=== PATIENT | male | born 1940 | race Caucasian/White ===

== ENCOUNTER 2017-10-05 22:11 | Emergency (ER) | payer OTHER, MEDICARE ==
[~2017-10-05] VITALS: Ht 180.3 cm; Wt 80.8 kg
[~2017-10-05 22:11] MED LIST: ASPI-321 PO; BIMA0.038 OPL; HYDC25 PO; MECL1TAB42 PO; METO25TA3 PO; METO25TA31 PO
[2017-10-05 22:14] VITALS: TEMP 36.6; Ht 180.3 cm; Wt 80.8 kg
[2017-10-05 22:18] VITALS: O2SAT 98
[2017-10-05] MEDS ORDERED: GI COCKTAIL PO STA (22:24)
[2017-10-05] MEDS ORDERED: ONDANSETRON INJ 2 MG/ML 2 ML VIAL IV STA (22:24)
[2017-10-05] MEDS ORDERED: SODIUM CHLORIDE 0.9% 1000ML 1,000 ML IV STA (22:24)
[2017-10-05] MEDS ORDERED: KETOROLAC TROMETHAMINE 30 MG/ML VIAL IV STA (22:24)
[2017-10-05] MEDS ORDERED: ALUMINUM/MAGNESIUM SUSP 30 ML UDC ONE (22:28)
[2017-10-05] MEDS ORDERED: LIDOCAINE HCL 2% VISC SOLN 20 ML UDC ONE (22:28)
--- NOTE | 2017-10-05 22:31 | EMERGENCY ROOM VISIT NOTE ---
History Report prepared by Yoseph: Vincent Loomis Under the Supervision of: Dr. Ron Torrez M.D. First contact with patient: 22:17 Chief Complaint: FOOD BOLUS Stated Complaint: STEAK LODGED IN THROAT History of Present Illness The patient is a 77 year old white male with a past medical history of HTN who presents to the ED with a cc of constant irritation and a resolved food bolus to the throat beginning 3 hours ago. Pt states he had a few bites of steak that got stuck in his throat. He reports he vomited phlegm up several times and was SOB. The patient notes he was almost to the hospital when he vomited up the chunks of steak. He states after he vomited, he was able to breath and felt better. The patient reports he now is only experiencing weakness and mild irritation now. Positive difficulty swallowing before. Negative radiation to the neck, cancer to the neck, alcohol use, tobacco use. Source of History: patient Onset: three hours ago Position: throat Quality: other (irritation/food bolus) Timing: constant (irritation), resolved (food bolus) Modifying Factors (Relieving): other (vomiting) Associated Symptoms: + SOB (resolved), + vomiting, + weakness Review of Systems See HPI for pertinent positives and negatives. A total of ten systems were reviewed and were otherwise negative. Past Medical & Surgical Medical Problems: (1) HTN (hypertension) (2) Skin problems Family History Diabetes mellitus FH: cancer FH: heart disease Social History Smoking Status: Former Smoker Marital Status: Housing Status: lives with family Occupation Status: retired Current/Historical Medications Scheduled Aspirin (Aspirin Ec), 81 MG PO DAILY Cholecalciferol (Vitamin D3), 5,000 UNIT PO DAILY Hydrochlorothiazide (Hydrochlorothiazide), 1 TAB PO DAILY Metoprolol Tartrate (Lopressor), 25 MG PO BID Travoprost (Travatan Z), 1 DROPS OPB HS Vitamin E (Vitamin E), 400 UNIT PO DAILY Scheduled PRN Pantoprazole (Protonix), 20 MG PO DAILY PRN for Heartburn Allergies Coded Allergies: No Known Allergies (Verified , NONE, 10/05/17) Physical Exam Vital Signs Date Time Temp Pulse Resp B/P (MAP) Pulse Ox O2 Delivery O2 Flow Rate FiO2 10/05/17 23:41 90 18 130/88 93 Room Air 10/05/17 23:00 87 10/05/17 22:47 93 18 151/119 98 Room Air 10/05/17 22:18 98 Room Air 98 10/05/17 22:14 36.6 120 22 147/107 100 Room Air Physical Exam GENERAL: Awake, alert, well-appearing, NAD HENT: Normocephalic, atraumatic. Posterior oropharynx is clear. EYES: Normal conjunctiva. Sclera non-icteric. NECK: Supple. No nuchal rigidity. FROM. Non-stridulous. RESPIRATORY: CTAB, no rhonchi, wheezing, crackles CARDIAC: Tachy and regular, no MRG ABDOMEN: Soft, NTND, BS+ MSK: No chest wall TTP, no LE edema NEURO: GCS 15, CN 2-12 intact, moves all 4s on command SKIN: No rash or jaundice noted. Medical Decision & Procedures ER Provider Diagnostic Interpretation: X-ray: Per my interpretation, radiologist review. CHEST ONE VIEW PORTABLE HISTORY: 77 years-old Male ABDOMINAL PAIN/GI acute generalized abdominal pain COMPARISON: Chest radiograph 03/05/2009 TECHNIQUE: Portable AP view of the chest FINDINGS: Cardiac silhouette is mildly enlarged, unchanged. Atherosclerosis of the aorta. No pneumothorax, pleural effusion, focal airspace consolidation or overt pulmonary edema. Degenerative changes of the shoulders and spine noted. IMPRESSION: Cardiomegaly without acute process. The above report was generated using voice recognition software. It may contain grammatical, syntax or spelling errors. Electronically signed by: Tin Story M.D. 10/05/2017 11:01 PM Dictated Date/Time: 10/05/2017 11:00 PM Laboratory Results 10/05/17 22:40 Red Blood Count 5.74, Mean Corpuscular Volume 81.0, Mean Corpuscular Hemoglobin 29.1, Mean Corpuscular Hemoglobin Concent 35.9, Mean Platelet Volume 8.7, Neutrophils (%) (Auto) 76.1, Lymphocytes (%) (Auto) 16.3, Monocytes (%) (Auto) 6.4, Eosinophils (%) (Auto) 0.7, Basophils (%) (Auto) 0.2, Neutrophils # (Auto) 8.27, Lymphocytes # (Auto) 1.77, Monocytes # (Auto) 0.69, Eosinophils # (Auto) 0.08, Basophils # (Auto) 0.02 10/05/17 22:40 Test 10/05/17 22:40 White Blood Count 10.86 K/uL (4.8-10.8) Red Blood Count 5.74 M/uL (4.7-6.1) Hemoglobin 16.7 g/dL (14.0-18.0) Hematocrit 46.5 % (42-52) Mean Corpuscular Volume 81.0 fL (80-100) Mean Corpuscular Hemoglobin 29.1 pg (25-34) Mean Corpuscular Hemoglobin Concent 35.9 g/dl (32-36) Platelet Count 179 K/uL (130-400) Mean Platelet Volume 8.7 fL (7.4-10.4) Neutrophils (%) (Auto) 76.1 % Lymphocytes (%) (Auto) 16.3 % Monocytes (%) (Auto) 6.4 % Eosinophils (%) (Auto) 0.7 % Basophils (%) (Auto) 0.2 % Neutrophils # (Auto) 8.27 K/uL (1.4-6.5) Lymphocytes # (Auto) 1.77 K/uL (1.2-3.4) Monocytes # (Auto) 0.69 K/uL (0.11-0.59) Eosinophils # (Auto) 0.08 K/uL (0-0.5) Basophils # (Auto) 0.02 K/uL (0-0.2) RDW Standard Deviation 38.9 fL (36.4-46.3) RDW Coefficient of Variation 13.1 % (11.5-14.5) Immature Granulocyte % (Auto) 0.3 % Immature Granulocyte # (Auto) 0.03 K/uL (0.00-0.02) Anion Gap 8.0 mmol/L (3-11) Est Creatinine Clear Calc Drug Dose 41.4 ml/min Estimated GFR () 46.7 Estimated GFR (Non- 40.3 BUN/Creatinine Ratio 17.1 (10-20) Calcium Level 9.5 mg/dl (8.5-10.1) Total Bilirubin 0.8 mg/dl (0.2-1) Direct Bilirubin 0.2 mg/dl (0-0.2) Aspartate Amino Transf (AST/SGOT) 15 U/L (15-37) Alanine Aminotransferase (ALT/SGPT) 17 U/L (12-78) Alkaline Phosphatase 83 U/L (45-117) Total Protein 7.9 gm/dl (6.4-8.2) Albumin 4.4 gm/dl (3.4-5.0) Lipase 171 U/L (73-393) Laboratory results reviewed by me Medications Administered Medications (Trade) Dose Ordered Sig/Romulo Route Start Time Stop Time Status Last Admin Dose Admin Sodium Chloride 1,000 ml @ 999 mls/hr Q1H1M STAT IV 10/05/17 22:24 10/05/17 23:24 DC 10/05/17 22:42 999 MLS/HR Ondansetron HCl (Zofran Inj) 4 mg NOW STAT IV 10/05/17 22:24 10/05/17 22:27 DC 10/05/17 22:42 4 MG Ketorolac Tromethamine (Toradol Inj) 30 mg NOW STAT IV 10/05/17 22:24 10/05/17 22:27 DC 10/05/17 22:42 30 MG Al Hydroxide/Mg Hydroxide (Maalox Susp) 30 ml STK-MED ONCE .ROUTE 10/05/17 22:28 10/05/17 22:29 DC 10/05/17 22:42 30 ML Lidocaine HCl (Viscous Lidocaine 2% Soln) 20 ml STK-MED ONCE .ROUTE 10/05/17 22:28 10/05/17 22:29 DC 10/05/17 22:42 20 ML ED Course 2221: The patient was evaluated in room B04B. A complete history and physical exam was performed. 2328: I reevaluated the patient. He is feeling much better. Discussed results and discharge instructions: he verbalized understanding and agreement. The patient is ready for discharge. Medical Decision Nursing notes reviewed. Ancillary studies and prior records reviewed. The patient is a 77 year old white male with a past medical history of HTN who presents to the ED with a cc of constant irritation and a resolved food bolus to the throat beginning 3 hours ago. Differential diagnosis: Etiologies such as viral syndrome, tonsillitis, streptococcal pharyngitis, mononucleosis, peritonsillar abscess, retropharyngeal abscess, otitis, pneumonia , influenza, food bolus, diverticulum, esophageal web, esophageal stricture, as well as others were entertained. Patient was seen and evaluated the bedside. Patient had been eating some steak and he felt as though it is lodged in his throat. Patient was having some difficulty with swallowing and was trying to cough something up. Thereafter he did have one bout of emesis. Patient does feel weak at this time. Patient thought that maybe he was having some difficulty breathing as well. On exam the patient has no evidence of any foreign body in the posterior pharynx. Patient is not stridulous on exam. Patient has clear breath sounds. Patient did have blood work completed, chest x-ray, and was given IV fluids as well as some medications. His blood work is fairly unremarkable. Patient does have some baseline CKD. This is fairly unchanged from his prior. Patient's chest x-ray did show cardiomegaly without any evidence of consolidation. On reassessment the patient's heart rate had improved. I believe this is likely related to some dehydration as well as anxiety. Patient was able tolerate p.o. at the bedside was able to tolerate rinku mickey without issue. Given that he likely had vomited up his food bolus and the fact that he is not stridulous with a clear extra chest x-ray and great improvement in his symptoms I do not believe that he requires a GI consult or further imaging or evaluation in the hospital. I did discuss with the patient that needs to be sure that he cuts up his food well, take small bites, and chews thoroughly before swallowing. Patient states he has had some issues with swallowing bread in the past. I discussed with the patient that if this becomes persistent he should discuss with his PCP about obtaining a swallow study. Again the patient at the bedside is not stridulous and I do not have a concern for airway compromise at this time. Patient was able tolerate p.o. Patient was deemed suitable for outpatient follow-up and treatment at this time. Patient was given strict follow-up, discharge, and return precautions. All questions were answered. Patient was deemed suitable for outpatient follow-up at this time. Patient agreed with the plan of care and was safely discharged home. Medication Reconcilliation Current Medication List: was personally reviewed by me Blood Pressure Screening Patient's blood pressure: Elevated blood pressure Blood pressure disposition: Referred to PCP Impression Primary Impression: Food impaction of esophagus Additional Impressions: Hypokalemia CKD (chronic kidney disease) stage 3, GFR 30-59 ml/min Scribe Attestation The scribe's documentation has been prepared under my direction and personally reviewed by me in its entirety. I confirm that the note above accurately reflects all work, treatment, procedures, and medical decision making performed by me. Departure Information Dispostion Home / Self-Care Referrals No Doctor, Assigned (PCP) Forms HOME CARE DOCUMENTATION FORM, IMPORTANT VISIT INFORMATION, WORK / SCHOOL INSTRUCTIONS Patient Instructions My [facility] Additional Instructions Please return to the emergency department if you have worsening or recurrent symptoms not amenable to at-home treatment. Please call for a follow-up appointment with her primary care physician. Please take your medications as prescribed. If you have other concerns and/or complaints please feel free to also call your primary care physician's office or return the ED for further evaluation, management, and treatment. You were found to have an elevated blood pressure today (>120 sytolic or >90 diastolic). Per medicare guidelines, you need to follow up with this blood pressure screening with your Primary Care Physician (PCP). For a new PCP call [phone]. Please ensure that when you eat consider softer foods, cut up her food into small pieces, take small bites, and chew your food thoroughly prior to swallowing. If you do have persistent issues with swallowing, please discuss obtaining further evaluation either with a specialist or further studies such as a swallow study as an outpatient. Return if you have any worsening or continued symptoms. Take your medications as prescribed. You have been examined and treated today on an emergency basis only. This is not a substitute for, or an effort to provide, complete comprehensive medical care. It is impossible to recognize and treat all injuries or illnesses in a single emergency department visit. It is therefore important that you follow up closely with [facility], your PCP, and/or your specialist(s). Call as soon as possible for an appointment. Thank you for your time and consideration. I look forward to speaking with you again soon. Please don't hesitate to call us if you have any questions. Problem Qualifiers Primary Impression: Food impaction of esophagus Encounter type: initial encounter Qualified Codes: T18.128A - Food in esophagus causing other injury, initial encounter
[2017-10-05 22:57] LABS: BASO % 0.2 %; BASO ABS # 0.02 K/uL (0-0.2); EOS % 0.7 %; EOS ABS # 0.08 K/uL (0-0.5); HEMATOCRIT 46.5 % (42-52); HEMOGLOBIN 16.7 g/dL (14.0-18.0); IG# 0.03 K/uL (0.00-0.02); LYMPH % 16.3 %; LYMPH ABS # 1.77 K/uL (1.2-3.4); MEAN CORPUSCULAR HEMOGLOBIN 29.1 pg (25-34); MEAN CORPUSCULAR HGB CONC 35.9 g/dl (32-36); MEAN PLATELET VOLUME 8.7 fL (7.4-10.4); MONO % 6.4 %; MONO ABS # 0.69 K/uL (0.11-0.59); NEUT % 76.1 %; NEUT ABS # 8.27 K/uL (1.4-6.5); PLATELET COUNT 179 K/uL (130-400); RED CELL DISTRIBUTION WIDTH CV 13.1 % (11.5-14.5); RED CELL DISTRIBUTION WIDTH SD 38.9 fL (36.4-46.3); WHITE BLOOD COUNT 10.86 K/uL (4.8-10.8)
--- NOTE | 2017-10-05 23:03 | DIAGNOSTIC IMAGING REPORT ---
CHEST ONE VIEW PORTABLE HISTORY: 77 years-old Male ABDOMINAL PAIN/GI acute generalized abdominal pain COMPARISON: Chest radiograph 03/05/2009 TECHNIQUE: Portable AP view of the chest FINDINGS: Cardiac silhouette is mildly enlarged, unchanged. Atherosclerosis of the aorta. No pneumothorax, pleural effusion, focal airspace consolidation or overt pulmonary edema. Degenerative changes of the shoulders and spine noted. IMPRESSION: Cardiomegaly without acute process. The above report was generated using voice recognition software. It may contain grammatical, syntax or spelling errors. Electronically signed by: Tin Story M.D. 10/05/2017 11:01 PM Dictated Date/Time: 10/05/2017 11:00 PM
[2017-10-05] MEDS ORDERED: HYDR12.55 PO (23:04)
[2017-10-05] MEDS ORDERED: LPR25 PO (23:04)
[2017-10-05] MEDS ORDERED: TRAV0.00 OPB (23:07)
[2017-10-05] MEDS ORDERED: VITA1TAB4 PO (23:07)
[2017-10-05] MEDS ORDERED: ASPI81TA28 PO (23:07)
[2017-10-05] MEDS ORDERED: PRT/20 PO (23:08)
[2017-10-05] MEDS ORDERED: CHOLCAP5 PO (23:08)
[2017-10-05 23:16] LABS: CALCIUM 9.5 mg/dl (8.5-10.1); CREATININE 1.64 mg/dl (0.60-1.40); POTASSIUM 3.3 mmol/L (3.5-5.1)
[2017-10-05 23:37] LABS: ALBUMIN 4.4 gm/dl (3.4-5.0)
[2017-10-05 23:40] LABS: TOTAL PROTEIN 7.9 gm/dl (6.4-8.2)
[2017-10-05 23:41] VITALS: BP 130/88; PULSE 90; O2SAT 93
== END 2017-10-06 00:09 | disposition home or self-care (01) ==
LOC: C.EDB 22:12
DX: T18.128A Food in esophagus causing other injury, initial encounter (principal); X58.XXXA Exposure to other specified factors, initial encounter; N18.3 Chronic kidney disease, stage 3 (moderate); I12.9 Hypertensive chronic kidney disease with stage 1 through stage 4 chronic kidney disease, or unspecified chronic kidney disease; E87.6 Hypokalemia; Z83.3 Family history of diabetes mellitus; Z80.9 Family history of malignant neoplasm, unspecified; Z87.891 Personal history of nicotine dependence; Z79.82 Long term (current) use of aspirin; Z79.899 Other long term (current) drug therapy

== ENCOUNTER 2023-10-29 14:17 | Inpatient (IN) ==
[2023-10-29 14:57] LABS: Hematocrit (blood only) 45.1 % (42.0-52.0); Hemoglobin 15.4 g/dl (14.0-18.0); Mean Corpuscular Hemoglobin 28.6 pg (25.0-34.0); Mean Corpuscular Hgb Conc 34.1 g/dL (32.0-36.0); Mean Corpuscular Volume 83.7 fL (80.0-100.0); Mean Platelet Volume 9.4 fL (9.4-12.4); Platelet Count 196 K/uL (130-400); RDW Coefficient of Variation 13.1 % (11.5-14.5); RDW Standard Deviation 39.8 fL (36.4-46.3); Red Blood Count 5.39 M/uL (4.70-6.10); White Blood Count 23.68 K/ul (4.8-10.8)
[2023-10-29 15:21] LABS: Basophils # (auto) 0.05 K/uL (0.00-0.20); Basophils % (auto) 0.2 %; Immature Granulocytes # (auto) 0.16 K/uL (0.01-0.20); Immature Granulocytes % (auto) 0.7 %; Lymphocytes # (auto) 1.58 K/uL (1.20-3.40); Lymphocytes % (auto) 6.7 %; Monocytes # (auto) 1.33 K/uL (0.11-0.59); Monocytes % (auto) 5.6 %; Neutrophils # (auto) 20.56 K/uL (1.40-6.50); Neutrophils % (auto) 86.8 %
[2023-10-29 15:25] LABS: Albumin Globulin Ratio 1.1 (0.9-2); Albumin Level 4.1 gm/dl (3.4-5.0); BUN Creatinine Ratio 17.4 (10-20); Bilirubin,Total 1.7 mg/dl (0.2-1.0); Calcium 9.5 mg/dl (8.6-10.3); Creatinine Clr Calc Pharmacy 40.6 ml/min; Est GFR (African American) 55.2 ml/min; Est GFR (Non-African American) 47.6 ml/min; Globulin 3.6 gm/dl (2.5-4.0); Potassium 3.7 mmol/L (3.5-5.1); Total Protein 7.7 gm/dl (6.0-8.3)
--- NOTE | 2023-10-29 15:28 | Emergency Department Note ---
Impression & Plan Acute cholecystitis, Epigastric abdominal pain, Jaundice, Leukocytosis ED Provider Note NAME: JACQUELYN TIERNEY AGE: 83 SEX: M : 1940 ARRIVES VIA: Walk-In INFORMANT: [Patient][family] ED PROVIDER(S): [Meet Merida MD] CHIEF COMPLAINT: Dehydration HISTORY OF PRESENT ILLNESS: The patient is an 83-year-old male states that 2 days ago, he began noticing epigastric abdominal pain and then began vomiting. He vomited the entire day. No diarrhea. He felt he may have had a low-grade fever. Yesterday, he laid around and felt fatigued with no appetite. No further vomiting. The fever seemed to subside. Today, the patient feels weak and dehydrated. He has a headache. No further fever, no cough or congestion. The patient still has some epigastric abdominal pain although, it is not as severe as it was 2 days ago. He is here today because he feels he may be dehydrated and has felt weak and tired before with dehydration. He has noticed decreased urinary output and his urine appears dark. PMHx/PSHx/Social Hx: See Below PHYSICAL EXAM: GENERAL: Patient is in no acute distress. HEENT: No acute trauma, normocephalic atraumatic, mucous membranes moist, no nasal congestion. NECK: No stridor, no adenopathy, no meningismus, trachea is midline. LUNGS: Clear to auscultation bilaterally, no wheeze, no rhonchi, breath sounds equal. HEART: Without murmurs gallops or rubs, regular rate and rhythm. ABDOMEN: Soft, mildly tender in the epigastrium, no distention or peritonitis. EXTREMITIES: No cyanosis, full range of motion of all the joints without pain or difficulty. NEUROLOGIC: Oriented x 3, no acute motor or sensory deficits, no focal weakness. SKIN: Potential mild jaundice, no diaphoresis. DIFFERENTIAL DIAGNOSIS: Liver disease, biliary colic, pancreatitis, gastritis, viral or foodborne illness, electrolyte imbalance, dehydration, among others. EMERGENCY DEPARTMENT PROCEDURES: MEDICAL DECISION MAKING: There is a marked leukocytosis at 23,000, this would be consistent with infection. There is a normal hemoglobin and platelet count. No renal failure. Bilirubin was elevated at 1.7. No evidence for pancreatitis. ECG showed a normal sinus rhythm, no ischemia. Cardiac enzyme testing x 1 was not consistent with acute cardiac injury. Urinalysis did not show infection. Chest x-ray did not show free air or pneumonia. Abdominal and pelvis CT shows findings of acute cholecystitis with a gallstone caught in the gallbladder neck. No biliary ductal dilatation. On exam, patient was somewhat tender in the epigastrium, he appeared slightly jaundiced. Patient received IV saline, 1 L. He was given IV Zosyn as antibiotic coverage. He appeared to be resting comfortably. I did speak with general surgery about the acute cholecystitis. They recommended a medical admission. I spoke with case management and the on-call hospitalist. I did talk to the patient about his findings. He understands the reason for the hospital stay, he understands that he will very likely require general surgical intervention. Prior/Outside records/notes reviewed: None ECG per my interpretation: Indication was epigastric abdominal pain. The ECG shows a normal sinus rhythm with a rate of 100. There is some nonspecific ST change. There is no acute ST elevation. No PVCs. There is poor R wave progression. QTc is 443. Continuous Cardiac Monitoring per my interpretation: An order was placed for continuous cardiac monitoring. The monitor shows a rate of 101 with sinus tachycardia. Imaging/x-ray results per my interpretation: Chest x-ray does not show mediastinal widening, pneumonia or pneumothorax. There is no free air. Chronic Medical/Social conditions affecting care: Advanced age. Care/Management discussed with: General surgery-Dr. Manzanares, case management and the on-call hospitalist. Level of care consideration(s): After review of the information above and other included data: --I believe the patient requires escalation of care to admission DISPOSITION: Admission Past Med/Surg History Medical History Glaucoma HTN (hypertension) Surgical History History of eye surgery No pertinent past surgical history Family History Father FHx: heart disease Mother Colorectal cancer Congestive heart failure due to hypertension Other FHx: cancer FHx: hypertension Denies family history of Ovarian cancer Prostate cancer Breast cancer Lung cancer Social History Smoking Status: Never smoker Second Hand Exposure: No; Do You Dip or Chew Tobacco: No; Hx Alcohol Use: No Hx Substance Use: No Preferred Language: Yakut Communication Ability: Effective Visual Impairment: Limited Hearing Ability: Normal 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 marital status: Current Living Situation: Spouse current occupational status: employed and retired Feels Safe at Home: Yes Childhood Exposure to Second-Hand Smoke: Yes Diet: regular caffeine: Yes (soda) Dental Care, Regularly: Yes Physical Activity Frequency: Does not Exercise Seatbelt Use: always Sunscreen Use: No Do you think of yourself as: straight/heterosexual Assistive Devices: Denture - Upper and Glasses Allergies Allergies Allergy/AdvReac Type Severity Reaction Status Date / Time lisinopril AdvReac Mild Cough Verified 09/14/23 13:22 Home Meds Home Medications Medication Instructions Recorded Confirmed aspirin 81 mg tablet,delayed 81 mg PO DAILY ##0 10/05/17 10/29/23 release (Willie Low Dose Aspirin) vitamin E 268 mg (400 unit) capsule 400 unit PO DAILY ##0 10/05/17 10/29/23 cholecalciferol (vitamin D3) 125 1,000 unit PO DAILY #0 tabs 10/15/21 10/29/23 mcg (5,000 unit) tablet latanoprost 0.005 % eye drops 1 drp ophthalmic (eye) DAILY 02/04/23 10/29/23 red yeast rice 600 mg tablet 600 mg PO .QOD 02/04/23 10/29/23 travoprost 0.004 % eye drops 1 drp OPB PM #1 btl 02/04/23 10/29/23 (Travatan Z) vit C 250 mg-E 90 mg-zinc 40 1 tab PO BID 09/14/23 10/29/23 mg-copper 1 [id number] chew tablet (PreserVision AREDS-2) amlodipine 2.5 mg tablet 2.5 mg PO HS 10/29/23 10/29/23 Previous Rx's Medication Instructions Recorded pantoprazole 20 mg tablet,delayed 20 mg PO DAILY PRN Heartburn #90 11/18/22 release tabs metoprolol succinate 25 mg 25 mg PO DAILY #90 tabs 04/21/23 tablet,extended release 24 hr Results & Data (ED) Vital Signs Vital Signs - 24 hr 10/29/23 14:23 10/29/23 15:11 10/29/23 15:16 Temperature 36.1 C L Temperature Source Temporal Artery Scan Pulse Rate 106 H 94 H 97 H Pulse Rate from SpO2 Sensor Respiratory Rate 16 21 Respiratory Effort / Characteristics Non-Labored Respiratory Depth Normal Respiratory Pattern Regular Blood Pressure 109/77 Blood Pressure Mean 87 Pulse Oximetry 93 Oxygen Delivery Method Room Air Sepsis Recent Fever Within 48 Hours Yes Sepsis New/Unexplained Change in Mental Status N/A Sepsis Action Taken by Nursing No Action Required 10/29/23 15:30 10/29/23 16:44 10/29/23 17:00 Temperature Temperature Source Pulse Rate 95 H 84 93 H Pulse Rate from SpO2 Sensor 95 H Respiratory Rate 17 23 16 Respiratory Effort / Characteristics Respiratory Depth Respiratory Pattern Blood Pressure Blood Pressure Mean Pulse Oximetry 98 Oxygen Delivery Method Sepsis Recent Fever Within 48 Hours Sepsis New/Unexplained Change in Mental Status Sepsis Action Taken by Nursing 10/29/23 17:00 10/29/23 17:30 10/29/23 17:31 Temperature Temperature Source Pulse Rate 104 H 107 H Pulse Rate from SpO2 Sensor Respiratory Rate 13 17 Respiratory Effort / Characteristics Respiratory Depth Respiratory Pattern Blood Pressure 147/95 H Blood Pressure Mean 128 Pulse Oximetry Oxygen Delivery Method Sepsis Recent Fever Within 48 Hours Sepsis New/Unexplained Change in Mental Status Sepsis Action Taken by Nursing 10/29/23 18:00 10/29/23 18:11 10/29/23 18:11 Temperature Temperature Source Pulse Rate 115 H Pulse Rate from SpO2 Sensor 108 H 94 H Respiratory Rate 24 Respiratory Effort / Characteristics Respiratory Depth Respiratory Pattern Blood Pressure 133/82 Blood Pressure Mean 85 Pulse Oximetry 92 93 Oxygen Delivery Method Sepsis Recent Fever Within 48 Hours Sepsis New/Unexplained Change in Mental Status Sepsis Action Taken by Nursing 10/29/23 18:30 10/29/23 18:30 10/29/23 19:08 Temperature Temperature Source Pulse Rate 90 86 Pulse Rate from SpO2 Sensor 90 Respiratory Rate 27 H Respiratory Effort / Characteristics Respiratory Depth Respiratory Pattern Blood Pressure 140/83 Blood Pressure Mean 109 Pulse Oximetry 93 Oxygen Delivery Method Room Air Sepsis Recent Fever Within 48 Hours Sepsis New/Unexplained Change in Mental Status Sepsis Action Taken by Snf Medications Current Medication List: was personally reviewed by me Laboratory Data Attestation: I reviewed the patient's lab results. 10/29/23 14:37 10/29/23 14:37 Lab Results 10/29/23 10/29/23 Range/Units 14:37 16:45 WBC 23.68 H (4.8-10.8) K/ul RBC 5.39 (4.70-6.10) M/uL Hgb 15.4 (14.0-18.0) g/dl Hct 45.1 (42.0-52.0) % MCV 83.7 (80.0-100.0) fL MCH 28.6 (25.0-34.0) pg MCHC 34.1 (32.0-36.0) g/dL RDW Std Deviation 39.8 (36.4-46.3) fL RDW Coeff of Peg 13.1 (11.5-14.5) % Plt Count 196 (130-400) K/uL MPV 9.4 (9.4-12.4) fL Immature Gran % (Auto) 0.7 % Neut % (Auto) 86.8 % Lymph % (Auto) 6.7 % [place] % (Auto) 5.6 % Eos % (Auto) 0.0 % Baso % (Auto) 0.2 % Neut # (Auto) 20.56 H (1.40-6.50) K/uL Lymph # (Auto) 1.58 (1.20-3.40) K/uL [place] # (Auto) 1.33 H (0.11-0.59) K/uL Eos # (Auto) 0.00 (0.00-0.50) K/uL Baso # (Auto) 0.05 (0.00-0.20) K/uL Immature Gran # (Auto) 0.16 (0.01-0.20) K/uL Sodium 137 (136-145) mmol/L Potassium 3.7 (3.5-5.1) mmol/L Chloride 102 (98-107) mmol/L Carbon Dioxide 25 (21-32) mmol/L Anion Gap 10 (3-11) BUN 24 H (6-23) mg/dl Creatinine 1.38 (0.6-1.4) mg/dl Est Cr Clr Drug Dosing 40.6 ml/min Est GFR ( Amer) 55.2 ml/min Est GFR (Non-Af Amer) 47.6 ml/min BUN/Creatinine Ratio 17.4 (10-20) Glucose 129 H (70-99(Fasting)) mg/dl Calcium 9.5 (8.6-10.3) mg/dl Magnesium 2.0 (1.7-2.4) mg/dl Total Bilirubin 1.7 H (0.2-1.0) mg/dl AST 23 (13-39) U/L ALT 15 (7-52) U/L Alkaline Phosphatase 73 (34-104) U/L Troponin I High Sens 18.2 (0-20) pg/ml Total Protein 7.7 (6.0-8.3) gm/dl Albumin 4.1 (3.4-5.0) gm/dl Globulin 3.6 (2.5-4.0) gm/dl Albumin/Globulin Ratio 1.1 (0.9-2) Lipase 12 (11-82) U/L Urine Color Yellow Urine Appearance Clear (Clear) Urine pH 7.0 (4.5-7.5) Ur Specific [place] > 1.045 H (1.000-1.030) Urine Protein 2+ H (Negative) Urine Glucose (UA) Negative (Negative) Urine Ketones Negative (Negative) Urine Blood 1+ H (Negative) Urine Nitrite Negative (Negative) Urine Bilirubin Negative (Negative) Urine Urobilinogen Negative (Negative) Ur Leukocyte Esterase Negative (Negative) Urine WBC (Auto) 0-5 (0-5) /hpf Urine RBC (Auto) 0-2 (0-2) /hpf U Hyaline Cast (Auto) 0-2 (0-2) /lpf U Epithel Cells (Auto) 0-2 (0-2) /hpf Urine Bacteria (Auto) None Seen (None Seen) Administered Medications Lactated Ringer's (Lr) 1,000 mls @ 125 mls/hr IV .Q8H KADIE Stop: 10/30/23 17:59 Last Admin: 10/29/23 19:04 Dose: 125 mls/hr Documented By: IDD Discontinued Medications Hydromorphone HCl (Hydromorphone Inj 0.5 Mg/0.5 Ml Syr) 0.5 mg IV NOW STA Stop: 10/29/23 17:17 Last Admin: 10/29/23 17:32 Dose: 0.5 mg Documented By: BMK Sodium Chloride (Nss) 1,000 mls @ 999 mls/hr IV .Q1H1M ONE Stop: 10/29/23 16:21 Last Infusion: 10/29/23 16:40 Dose: Infused Documented By: Admin: 10/29/23 15:29 Dose: 999 mls/hr Documented By: AYANNA Piperacillin Sod/Tazobactam Sod (Zosyn) 4.5 gm in 120 mls @ 240 mls/hr IV NOW ONE Stop: 10/29/23 16:55 Last Infusion: 10/29/23 17:35 Dose: Infused Documented By: Admin: 10/29/23 16:41 Dose: 240 mls/hr Documented By: AYANNA Acetaminophen (Ofirmev) 1,000 mg in 100 mls @ 400 mls/hr IV NOW STA Stop: 10/29/23 17:38 Last Infusion: 10/29/23 17:50 Dose: Infused Documented By: Admin: 10/29/23 17:33 Dose: 400 mls/hr Documented By: SHE Ioversol (Optiray 320 100ml) 92 ml IV ONCE ONE Stop: 10/29/23 16:04 Last Admin: 10/29/23 16:05 Dose: 92 ml Documented By: MARGIE Ondansetron HCl (Ondansetron Inj 2 Mg/Ml 2 Ml Vial) 4 mg IV NOW STA Stop: 10/29/23 15:22 Last Admin: 10/29/23 15:29 Dose: 4 mg Documented By: AYANNA Imaging Data Radiologist's Impression: Abdomen/Pelvis CT 10/29/23 15:21 CT abd pelvis IV con only CLINICAL HISTORY: epig pain, vomiting TECHNIQUE: Helical axial images of the abdomen and pelvis were obtained and displayed. Automated dose lowering techniques and/or adjustment according to patient size were utilized for this exam. This exam was performed with intravenous contrast. CT DOSE: 1060.7 mGy.cm COMPARISON: None available at the time of this dictation. FINDINGS: Lower chest: No acute abnormality. Liver: Unremarkable. No focal lesions are seen. Gallbladder and biliary tree: There is cholecystic edema is seen with distention of the gallbladder. Gallbladder wall measures 2 to 3 mm. A stone is incidentally noted in the gallbladder neck. No intra- or extrahepatic biliary ductal dilation. Pancreas: Unremarkable, no focal lesions. Spleen: Unremarkable. Adrenals: Unremarkable. Kidneys and ureters: Unremarkable. Bladder: Limited evaluation due to underdistention. 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 Bowel: Diverticulosis is seen without diverticulitis. The appendix is normal. Hiatal hernia is seen. Lymph nodes Retroperitoneal: Unremarkable. Pelvic: Unremarkable. Mesenteric: Unremarkable. Peritoneum: Normal. Vessels: Atherosclerotic calcifications are seen. Abdominal wall: Unremarkable. Bones: Degenerative changes in the visualized spine. IMPRESSION: Pericholecystic edema and borderline prominence of the gallbladder wall, findings may represent acute cholecystitis. ACT 112: Negative or not required by law. Electronically signed by: Mohit Posada M.D. 10/29/2023 4:20 PM Chest X-Ray 10/29/23 15:22 SINGLE VIEW CHEST CLINICAL HISTORY: Generalized abdominal pain. FINDINGS: 2 AP, portable, upright chest radiographs are compared to study dated 10/05/2017. A hiatal hernia is noted. The heart is enlarged noting atherosclerotic calcification of the thoracic aorta. The pulmonary vasculature is noncongested. Chronic fissural thickening is similar to previous. There is bibasilar scarring/atelectasis. The lungs and pleural spaces are otherwise clear. No pneumothorax is seen. The skeletal structures are osteopenic. The bony thorax is grossly intact. Degenerative change is noted in the spine. IMPRESSION: Cardiomegaly with no active disease in the chest. ACT 112: Negative or not required by law. Electronically signed by: Meet Ahumada M.D. 10/29/2023 3:54 PM Discharge Plan Visit Data Chief Complaint: Dehydration Stated Complaint: DEHYDRATED, FLU SINCE LAST WEEK ED Provider: Meet Merida Discharge Problem: Acute cholecystitis, Epigastric abdominal pain, Jaundice, Leukocytosis Patient Disposition: Admitted As Inpatient Condition: Fair Forms Stand Alone Forms: [facility] Prescriptions Prescriptions: No Action aspirin [Willie Low Dose Aspirin] 81 mg Tablet,Delayed Release (Dr/Ec) 81 mg PO DAILY Qty: 0 vitamin E 400 unit Capsule 400 unit PO DAILY Qty: 0 cholecalciferol (vitamin D3) 125 mcg (5,000 unit) tablet 1,000 unit PO DAILY Qty: 0 pantoprazole 20 mg tablet,delayed release (DR/EC) 20 mg PO DAILY PRN (Reason: Heartburn) Qty: 90 3RF Rx Instructions: reqs 90 days travoprost [Travatan Z] 0.004 % drops 1 drp OPB PM Qty: 1 Rx Instructions: BOTH EYES metoprolol succinate 25 mg tablet extended release 24 hr 25 mg PO DAILY Qty: 90 3RF latanoprost 0.005 % drops 1 drp ophthalmic (eye) DAILY Rx Instructions: BOTH EYES PreserVision AREDS-2 250-90-40-1 mg tablet,chewable 1 tab PO BID red yeast rice 600 mg tablet 600 mg PO .QOD amlodipine 2.5 mg tablet 2.5 mg PO HS Referrals Referrals: Nader Crane DO [Primary Care Provider] - Discharge Problem: Leukocytosis Qualifiers: Leukocytosis type: unspecified Qualified Code(s): D72.829 - Elevated white blood cell count, unspecified
[2023-10-29] MEDS: ONDANSETRON INJ 2 MG/ML 2 ML VIAL IV STA (15:29)
[2023-10-29] MEDS: SODIUM CHLORIDE 0.9% 1,000 ML IV ONE (15:29)
--- NOTE | 2023-10-29 15:55 | XRay Report ---
SINGLE VIEW CHEST CLINICAL HISTORY: Generalized abdominal pain. FINDINGS: 2 AP, portable, upright chest radiographs are compared to study dated 10/05/2017. A hiatal h ernia is noted. The heart is enlarged noting atherosclerotic calcification of the thoracic aorta. The pulmonary vasculature is noncongested. Chronic fissural thickening is similar to previous. There is bibasilar scarring/atelectasis. The lungs and pleural spaces are otherwise clear. No pneumothorax is seen. The skeletal structures are osteopenic. The bony thorax is grossly intact. Degenerative change is noted in the spine. IMPRESSION: Cardiomegaly with no active disease in the chest. ACT 112: Negative or not required by law. Electronically signed by: Meet Ahumada M.D. 10/29/2023 3:54 PM
[2023-10-29] MEDS: OPTIRAY 320 100ml IV ONE (16:05)
[2023-10-29 16:11] LABS: Troponin I High Sensitivity 18.2 pg/ml (0-20)
--- NOTE | 2023-10-29 16:23 | CT Scan Report ---
CT abd pelvis IV con only CLINICAL HISTORY: epig pain, vomiting TECHNIQUE: Helical axial images of the abdomen and pelvis were obtained and displayed. Automated dose lowering techniques and/or adjustment according to patient size were utilized for this exam. This e xam was performed with intravenous contrast. CT DOSE: 1060.7 mGy.cm COMPARISON: None available at the time of this dictation. FINDINGS: Lower chest: No acute abnormality. Liver: Unremarkable. No focal lesions are seen. Gallbladder and biliary tree: There is cholecystic edema is seen with distention of the gallbladder. Gallbladder wall measures 2 to 3 mm. A stone is incidentally noted in the gallbladder neck. No intra- or extrahepatic biliary ductal dilation. Pancreas: Unremarkable, no focal lesions. Spleen: Unremarkable. Adrenals: Unremarkable. Kidneys and ureters: Unremarkable. Bladder: Limited evaluation due to underdistention. 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 Bowel: Diverticulosis is seen without diverticulitis. The appendix is normal. Hiatal hernia is seen. Lymph nodes Retroperitoneal: Unremarkable. Pelvic: Unremarkable. Mesenteric: Unremarkable. Peritoneum: Normal. Vessels: Atherosclerotic calcifications are seen. Abdominal wall: Unremarkable. Bones: Degenerative changes in the visualized spine. IMPRESSION: Pericholecystic edema and borderline prominence of the gallbladder wall, findings may represent acute cholecystitis. ACT 112: Negative or not required by law. Electronically signed by: Mohit Posada M.D. 10/29/2023 4:20 PM
[2023-10-29] MEDS: PIPERACILLIN/TAZOBACTAM 4.5 GM/120 ML BAG IV ONE (16:41)
--- NOTE | 2023-10-29 16:59 | History & Physical Report ---
Date of Service October 29, 2023 Assessment & Plan (1) Acute cholecystitis: Plan: Generalized weakness, nausea, and vomiting that began on Thursday 10/26 Leukocytosis at 23.68 with neutrophil predominance Elevated total bilirubin at 1.7 A/P CT revealed findings consistent with acute cholecystitis Strict n.p.o. for now (hold p.o. medications) IVF w/ LR at 125mL/hr x 3 Zosyn 4.5 g IV q8h Zofran as needed for nausea and vomiting Acetaminophen IV q8h as needed for pain/fever Dilaudid IV q4h as needed for breakthrough pain General surgery consulted with planned lap janet on 10/29 A.m. CBC, BMP, LFT, and T/D Bilirubin (2) HTN (hypertension): Plan: Patient took metoprolol the morning of 10/28 Will hold metoprolol, amlodipine for now prior to surgery [facility]: [facility] Strict n.p.o. for now VTE PPx: SCDs (hold chemical DVT PPx prior to surgery) History of Present Illness Chief Complaint: Nausea, vomiting, RUQ/epigastric pain Primary Care Provider: Nader Crane DO [place] is an 83-year-old male with PMH of HTN, glaucoma, GERD, and CKD. He presented for generalized weakness, fever, chills, epigastric pain, nausea, and vomiting that began on Thursday 10/26. Patient believes he caught a stomach flu Thursday morning, and has been feeling sick since. He endorses severe epigastric pain that extends to the umbilicus. Rated 10/10 at worst. The pain was constant on Thursday, and lasted most of the day. No radiation to the back, chest, or legs. Patient reports that no matter how he laid, he could get rid of the pain. He took Tylenol yesterday as he was running a fever, and began to sweat profusely after that, and believes that broke his fever. Since then patient has been tolerating fluids, but rarely solids. Able to drink Pedialyte and water. The only real fluid he had since Thursday was some toast. Patient took his metoprolol this morning, but besides that has not had his medications for the past 2 days. Patient denies PMH of DC, DVT/PE, DM, or CHF. Last BM was on Thursday 10/26. He also took his BP at home and believes it was around 94/66 today. No sick contacts. Patient denies smoking, tobacco use, or alcohol use. At time of admission, patient is hypertensive at 147/95, and mildly tacky at 93 bpm; SpO2 98% on RA. ED course: Zofran 4 mg IV NSS 1000 mL IV Zosyn 4.5 g IV ROS: Patient endorses fever, chills, sweating, vomiting, decreased appetite, RUQ/epigastric pain, SOB during episodes of epigastric pain, and some constipation. Patient denies dizziness, lightheadedness, chest pain, chest palpitations, SOB at rest, cough, diarrhea, change in urinary habits, blood in urine or stool, or numbness/tingling in arms or legs. Allergies Allergy/AdvReac Type Severity Reaction Status Date / Time lisinopril AdvReac Mild Cough Verified 09/14/23 13:22 Home Medications Medication Instructions Recorded Confirmed Type aspirin 81 mg tablet,delayed 81 mg PO DAILY ##0 10/05/17 10/29/23 History release (Willie Low Dose Aspirin) vitamin E 268 mg (400 unit) capsule 400 unit PO DAILY ##0 10/05/17 10/29/23 History cholecalciferol (vitamin D3) 125 1,000 unit PO DAILY #0 tabs 10/15/21 10/29/23 History mcg (5,000 unit) tablet pantoprazole 20 mg tablet,delayed 20 mg PO DAILY PRN Heartburn #90 11/18/22 10/29/23 Rx release tabs latanoprost 0.005 % eye drops 1 drp ophthalmic (eye) DAILY 02/04/23 10/29/23 History red yeast rice 600 mg tablet 600 mg PO .QOD 02/04/23 10/29/23 History travoprost 0.004 % eye drops 1 drp OPB PM #1 btl 02/04/23 10/29/23 History (Travatan Z) metoprolol succinate 25 mg 25 mg PO DAILY #90 tabs 04/21/23 10/29/23 Rx tablet,extended release 24 hr vit C 250 mg-E 90 mg-zinc 40 1 tab PO BID 09/14/23 10/29/23 History mg-copper 1 [id number]-[id number] chew tablet (PreserVision AREDS-2) amlodipine 2.5 mg tablet 2.5 mg PO HS 10/29/23 10/29/23 History Past Med/Surg History Medical History Glaucoma HTN (hypertension) Surgical History History of eye surgery No pertinent past surgical history Family History Father FHx: heart disease Mother Colorectal cancer Congestive heart failure due to hypertension Other FHx: cancer FHx: hypertension Denies family history of Ovarian cancer Prostate cancer Breast cancer Lung cancer Social History Smoking Status: Never smoker Second Hand Exposure: No; Do You Dip or Chew Tobacco: No; Hx Alcohol Use: No Hx Substance Use: No Preferred Language: Tamazight Communication Ability: Effective Visual Impairment: Limited Hearing Ability: Normal Category Development Analyst Required: No marital status: Current Living Situation: Spouse current occupational status: employed and retired Feels Safe at Home: Yes Childhood Exposure to Second-Hand Smoke: Yes Diet: regular caffeine: Yes (soda) Dental Care, Regularly: Yes Physical Activity Frequency: Does not Exercise Seatbelt Use: always Sunscreen Use: No Do you think of yourself as: straight/heterosexual Assistive Devices: Denture - Upper and Glasses Review of Systems Review of Systems: See HPI above Physical Exam Physical Exam: General: Initially, patient was in no acute distress, but then developed acute onset of RUQ pain and began writhing in bed during exam; non-toxic appearing; cooperative; SpO2 98% on RA HEENT: normocephalic, atraumatic; no scleral icterus; PERRLA; moist mucus membrane; vision and hearing intact Neck: supple; no lymphadenopathy; trachea midline Skin: warm, dry without signs of tenting; no cyanosis; no rashes, bruising, lesions, or erythema noted on the abdomen or flanks CV: chest wall NTP; RRR; S1/S2 normal; no murmurs/rubs/gallops; pulses intact and symmetric at radial, DP, and PT Lungs: no acute respiratory distress; symmetrical chest wall expansion; clear breath sounds across all lung elliott w/o adventitious sounds; no wheezing ABD: Soft; RUQ TTP; BS present; no rebound/guarding; no distention MSK: no tics or fasciculations; no edema noted in the LEs b/l, nonerythematous Neuro: A&Ox3; normal mood and affect; fluent speech; no focal deficits; sensation intact in the LEs b/l Results & Data Results & Data Vital Signs (Past 12 Hours) Vital Signs Temp Pulse Resp BP Pulse Ox O2 Del Method 10/29/23 15:16 97 H 10/29/23 14:23 36.1 C L 106 H 16 109/77 93 Room Air Laboratory Results Abnormal lab results 10/29/23 Range/Units 14:37 WBC 23.68 H (4.8-10.8) K/ul Neut # (Auto) 20.56 H (1.40-6.50) K/uL [place] # (Auto) 1.33 H (0.11-0.59) K/uL BUN 24 H (6-23) mg/dl Glucose 129 H (70-99(Fasting)) mg/dl Total Bilirubin 1.7 H (0.2-1.0) mg/dl Diagnostic Findings Abdomen/Pelvis CT 10/29/23 15:21 CT abd pelvis IV con only CLINICAL HISTORY: epig pain, vomiting TECHNIQUE: Helical axial images of the abdomen and pelvis were obtained and displayed. Automated dose lowering techniques and/or adjustment according to patient size were utilized for this exam. This exam was performed with intravenous contrast. CT DOSE: 1060.7 mGy.cm COMPARISON: None available at the time of this dictation. FINDINGS: Lower chest: No acute abnormality. Liver: Unremarkable. No focal lesions are seen. Gallbladder and biliary tree: There is cholecystic edema is seen with distention of the gallbladder. Gallbladder wall measures 2 to 3 mm. A stone is incidentally noted in the gallbladder neck. No intra- or extrahepatic biliary ductal dilation. Pancreas: Unremarkable, no focal lesions. Spleen: Unremarkable. Adrenals: Unremarkable. Kidneys and ureters: Unremarkable. Bladder: Limited evaluation due to underdistention. 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 Bowel: Diverticulosis is seen without diverticulitis. The appendix is normal. Hiatal hernia is seen. Lymph nodes Retroperitoneal: Unremarkable. Pelvic: Unremarkable. Mesenteric: Unremarkable. Peritoneum: Normal. Vessels: Atherosclerotic calcifications are seen. Abdominal wall: Unremarkable. Bones: Degenerative changes in the visualized spine. IMPRESSION: Pericholecystic edema and borderline prominence of the gallbladder wall, findings may represent acute cholecystitis. ACT 112: Negative or not required by law. Electronically signed by: Mohit Posada M.D. 10/29/2023 4:20 PM Chest X-Ray 10/29/23 15:22 SINGLE VIEW CHEST CLINICAL HISTORY: Generalized abdominal pain. FINDINGS: 2 AP, portable, upright chest radiographs are compared to study dated 10/05/2017. A hiatal hernia is noted. The heart is enlarged noting atherosclerotic calcification of the thoracic aorta. The pulmonary vasculature is noncongested. Chronic fissural thickening is similar to previous. There is bibasilar scarring/atelectasis. The lungs and pleural spaces are otherwise crista r. No pneumothorax is seen. The skeletal structures are osteopenic. The bony thorax is grossly intact. Degenerative change is noted in the spine. IMPRESSION: Cardiomegaly with no active disease in the chest. ACT 112: Negative or not required by law. Electronically signed by: Meet Ahumada M.D. 10/29/2023 3:54 PM ECG Additional Comments: ECG revealed NSR at 100 bpm; QTc 443 Code Status & VTE Plan Code Status Full code VTE Prophylaxis Plan VTE Prophylaxis will be ordered: Yes Supervising Physician Co-Signing Physician Notes Patient seen and examined, chart reviewed, case discussed with Aravind Goddard and I agree with the assessment and plan as above except as otherwise noted Labs and images reviewed 83-year-old male who presents with approximately 1 week of decreased appetite, nausea with intermittent episodes of nonbloody/non bilious emesis and right upper abdominal discomfort. CTA/P is suspicious for acute cholecystitis. Gallbladder neck stone is present however there is no radiographic evidence of ductal dilation or choledocholithiasis. Total bilirubin is elevated but <1.8, AST/ALT/alk phos are all normal. Surgery consulted and anticipate cholecystectomy 10/29. NPO. IV FM. Scaled Multimodal pain control. Zofran as needed. Continue Zosyn. He is not septic/toxic appearing at time of assessment. Right upper quadrant is with tenderness to palpation. He is not hypotensive, regular tachycardia at time of a right upper quadrant pain and spasm. He is not tachypneic or hypoxic. Lungs are clear. He has no history of ischemic heart disease or congestive heart failure. No history of insulin use. Creatinine 1.38, denies history of CVA. RCRI 0 points, class I risk. No modifiable risk factors preoperatively. Recommend proceeding to surgery as a class I/low perioperative risk. Agree with above PG Care Time/CCT Total # of Minutes Spent Total Time Spent with Patient: Total time spent is greater than 50% in coordination of care (as documented) at patient's floor/unit and/or counseling patient: C[place] [address] INT INP/OBS CARE 3/75MIN Patient Type Established History Comprehensive Exam Comprehensive Medical Decision Making High Complexity Diagnoses Acute cholecystitis K81.0 HTN (hypertension) I10
[2023-10-29 17:08] LABS: Appearance Urine Clear (Clear); Bacteria Urine Automated None Seen (None Seen); Bilirubin Urine Negative (Negative); Blood Urine 1+ (Negative); Cast Urine Automated 0-2 /lpf (0-2); Color Urine Yellow; Epithelial Cell Urine Auto 0-2 /hpf (0-2); Glucose Urine UA Negative (Negative); Ketones Urine Negative (Negative); Leukocyte Esterase Urine Negative (Negative); Nitrite Urine Negative (Negative); Protein Urine 2+ (Negative); RBC Urine Automated 0-2 /hpf (0-2); Specific Gravity Urine > 1.045 (1.000-1.030); Urobilinogen Urine Negative (Negative); WBC Urine Automated 0-5 /hpf (0-5)
--- NOTE | 2023-10-29 17:16 | Communication Note ---
Date of Service: October 29, [address] recommend medicine admission, abx, npo after midnight. US to define ductal anatomy. repeat labs including LFT with t bili and D bili in AM. if any concern for choledocholithiasis, then MRCP. plan for robotic/lap cholecystectomy tomorrow.
[2023-10-29] MEDS: HYDROmorphone INJ 0.5 MG/0.5 ML SYR IV STA ×3 (17:32→21:36)
[2023-10-29] MEDS: ACETAMINOPHEN 1,000 MG/100 ML VIAL IV STA (17:33)
[2023-10-29] MEDS: LACTATED RINGER'S 1,000 ML IV SCH (19:04)
[2023-10-29] MEDS ORDERED: ONDANSETRON INJ 2 MG/ML 2 ML VIAL IV PRN (21:09)
[2023-10-29] MEDS ORDERED: TRAVOPROST Z 0.004% OPH SOLN 2.5 ML BTL OPB SCH (21:09)
--- NOTE | 2023-10-29 21:25 | Ultrasound Report ---
Exam(s): US GALLBLADDER EXAM: US Abdomen Limited, Gallbladder CLINICAL HISTORY: Reason for exam: poss janet. TECHNIQUE: Real-time ultrasound of the right upper quadrant with image documentation. COMPARISON: None. FINDINGS: Limitations: Exam is limited due to gas artifact in the bowel and body habitus. Liver: Diffuse fatty liver. The liver measures 14.2 cm. Gallbladder: There is sludge within the gallbladder. No gallstones visualized. The gallbladder wall measures 3 mm. Difficult to assess my fist sign due to medical condition. Common bile duct: The common bile duct measures 3.5 mm. No stones. No dilation. Pancreas: The pancreas is obscured. Right kidney: The right kidney is unremarkable with no hydronephrosis. Other vasculature: The pulse and vein reveals the bladder below flow. Free fluid: There is small amount of ascites surrounding the liver. IMPRESSION: 1. Sludge within the gallbladder with borderline thickening of gallbladder wall. No gallstones visualized. Cannot entirely exclude acalculous cholecystitis. If cholecystitis is suspected, recommend follow-up with HIDA scan. 2. Diffuse fatty liver, remainder of the right upper quadrant ultrasound unremarkable. Electronically signed by: Eboni Peters MD 10/29/23 21:24 PM
[2023-10-29] MEDS: PIPERACILLIN/TAZOBACTAM 4.5 GM in DEXTROSE 5% MINI-B 100 ML IV SCH (22:00)
[2023-10-29] MEDS ORDERED: HYDROmorphone INJ 0.5 MG/0.5 ML SYR IV PRN ×2 (23:30)
[2023-10-29] MEDS ORDERED: HYDROmorphone INJ 1 MG/ML SYRINGE IV PRN (23:30)
[2023-10-29] MEDS: HYDROmorphone INJ 1 MG/ML SYRINGE IV PRN (23:57)
[2023-10-30] MEDS ORDERED: Nursing to Pharmacy Communication SCH (00:15)
[2023-10-30] MEDS: LATANOPROST 0.005% OP SOLN 2.5 ML BTL OPB SCH (00:45)
[2023-10-30] MEDS: DORZOLAMIDE/TIMOLOL 22.3/6.8MG/ML 10 ML BTL OPB SCH (01:26)
[2023-10-30] MEDS: ACETAMINOPHEN 1,000 MG/100 ML VIAL IV SCH (01:27)
[2023-10-30] MEDS ORDERED: ACETAMINOPHEN 1,000 MG/100 ML VIAL IV PRN (01:30)
[2023-10-30] MEDS ORDERED: NALOXONE HCL 0.4 MG/1 ML VIAL/CARP IV PRN (01:50)
[2023-10-30] MEDS ORDERED: HYDROmorphone INJ 0.5 MG/0.5 ML SYR IV PRN (01:51)
[2023-10-30] MEDS: HYDROmorphone INJ 1 MG/ML SYRINGE IV PRN (02:51)
[2023-10-30 06:10] LABS: Hematocrit (blood only) 39.9 % (42.0-52.0); Hemoglobin 13.3 g/dl (14.0-18.0); Mean Corpuscular Hemoglobin 28.4 pg (25.0-34.0); Mean Corpuscular Hgb Conc 33.3 g/dL (32.0-36.0); Mean Corpuscular Volume 85.1 fL (80.0-100.0); Mean Platelet Volume 9.5 fL (9.4-12.4); Platelet Count 170 K/uL (130-400); RDW Coefficient of Variation 13.3 % (11.5-14.5); RDW Standard Deviation 41.3 fL (36.4-46.3); Red Blood Count 4.69 M/uL (4.70-6.10); White Blood Count 16.02 K/ul (4.8-10.8)
[2023-10-30 06:23] LABS: Albumin Level 3.3 gm/dl (3.4-5.0); Bilirubin Direct 0.9 mg/dl (0-0.2); Bilirubin,Total 2.3 mg/dl (0.2-1.0); Calcium 8.9 mg/dl (8.6-10.3); Creatinine Clr Calc Pharmacy 29.8 ml/min; Est GFR (Non-African American) 32.8 ml/min; Potassium 4.8 mmol/L (3.5-5.1); Total Protein 6.1 gm/dl (6.0-8.3)
[2023-10-30 06:37] LABS: Basophils # (auto) 0.05 K/uL (0.00-0.20); Basophils % (auto) 0.3 %; Immature Granulocytes # (auto) 0.11 K/uL (0.01-0.20); Immature Granulocytes % (auto) 0.7 %; Lymphocytes # (auto) 0.66 K/uL (1.20-3.40); Lymphocytes % (auto) 4.1 %; Monocytes # (auto) 0.66 K/uL (0.11-0.59); Monocytes % (auto) 4.1 %; Neutrophils # (auto) 14.54 K/uL (1.40-6.50); Neutrophils % (auto) 90.8 %; Rouleaux 1+
[2023-10-30] MEDS ORDERED: ROCURONIUM BROMIDE 10 MG/ML 5 ML VIAL IV ONE ×2 (06:46→08:50)
[2023-10-30] MEDS ORDERED: fentaNYL citrate PF 100 MCG/2 ML VIAL ONE ×2 (06:46→09:15)
[2023-10-30] MEDS ORDERED: PROPOFOL IV EMULSION 10 MG/ML 20 ML VIAL IV ONE (06:46)
[2023-10-30] MEDS ORDERED: ePHEDrine sulfate 50 MG/ML AMP IV PRN (07:59)
[2023-10-30] MEDS ORDERED: ATROPINE SULFATE 0.1 MG/ML 10ML SYR IV PRN (07:59)
[2023-10-30] MEDS ORDERED: HYDROmorphone INJ 1 MG/ML SYRINGE IV PRN (07:59)
--- NOTE | 2023-10-30 07:59 | Anesthesiology Consultation ---
Date of Service October 30, 2023 Assessment & Plan ASA ASA3 Proposed Anesthesia Anesthesia Type: General Risk / Benefits Reviewed With: PT / POA / Parent / Guardian, Accepts Plan and Informed Consent Obtained History Surgery Operation Date: 10/30/23 07:00 Proposed Procedures p Robotic Laparoscopic Cholecystectomy - Nav Manzanares DO, FACS Height/Weight Height: 5 ft 8 in Weight: 76.8 kg Allergies Allergy/AdvReac Type Severity Reaction Status Date / Time lisinopril AdvReac Mild Cough Verified 09/14/23 13:22 Medications Home Medications Medication Instructions Recorded Confirmed Last Taken aspirin 81 mg tablet,delayed 81 mg PO DAILY ##0 10/05/17 10/29/23 05/05/18 release (Willie Low Dose Aspirin) vitamin E 268 mg (400 unit) capsule 400 unit PO DAILY ##0 10/05/17 10/29/23 Unknown cholecalciferol (vitamin D3) 125 1,000 unit PO DAILY #0 tabs 10/15/21 10/29/23 Unknown mcg (5,000 unit) tablet pantoprazole 20 mg tablet,delayed 20 mg PO DAILY PRN Heartburn #90 11/18/22 10/29/23 Unknown release tabs latanoprost 0.005 % eye drops 1 drp ophthalmic (eye) DAILY 02/04/23 10/29/23 Unknown red yeast rice 600 mg tablet 600 mg PO .QOD 02/04/23 10/29/23 Unknown travoprost 0.004 % eye drops 1 drp OPB PM #1 btl 02/04/23 10/29/23 Unknown (Travatan Z) metoprolol succinate 25 mg 25 mg PO DAILY #90 tabs 04/21/23 10/29/23 Unknown tablet,extended release 24 hr vit C 250 mg-E 90 mg-zinc 40 1 tab PO BID 09/14/23 10/29/23 Unknown mg-copper 1 [id number] chew tablet (PreserVision AREDS-2) amlodipine 2.5 mg tablet 2.5 mg PO HS 10/29/23 10/29/23 Unknown Active Medications Generic Name Dose Route Start Last Admin Trade Name Freq PRN Reason Stop Dose Admin Dorzolamide/Timolol 1 drops 10/30/23 00:45 10/30/23 01:26 Dorzolamide/Timolol 22.3/6.8mg/Ml 10 Ml Btl OPB 11/29/23 00:44 1 drops HS KADEI Administration Hydromorphone HCl 1 mg 10/30/23 01:51 10/30/23 05:12 Hydromorphone Inj 1 Mg/Ml Syringe IV 11/12/23 23:29 1 mg Q2H PRN Administration Severe Pain (7,8,9,10) on NRS Lactated Ringer's 1,000 mls @ 125 mls/hr 10/29/23 18:00 10/30/23 03:53 Lr IV 10/30/23 17:59 125 mls/hr .Q8H KADIE Administration Piperacillin Sod/Tazobactam 100 mls @ 25 mls/hr 10/29/23 22:00 10/30/23 05:08 Sod 4.5 gm/ Dextrose IV 11/02/23 21:59 25 mls/hr Q8H KADIE Administration Protocol Acetaminophen 1,000 mg in 100 mls @ 400 mls/hr 10/30/23 01:30 10/30/23 01:42 Ofirmev IV 11/02/23 01:29 Infused Q8H KADIE Infusion Latanoprost 1 drops 10/30/23 00:05 10/30/23 00:45 Latanoprost 0.005% Op Soln 2.5 Ml Btl OPB 11/29/23 00:04 1 drops HS KADIE Administration NPO Date Last Intake of Fluids: 10/29/23 Time Last Intake of Fluids: 00:00 Date Last Intake of Solids: 10/29/23 Time Last Intake of Solids: 00:00 Past Medical History Medical History Glaucoma HTN (hypertension) Exercise / Class Metabolic Activity II 4-5 Yardwork/Stairs/Walk up hill Past Family History Family History Father FHx: heart disease Mother Colorectal cancer Congestive heart failure due to hypertension Other FHx: cancer FHx: hypertension Denies family history of Ovarian cancer Prostate cancer Breast cancer Lung cancer Past Surgical History Surgical History History of eye surgery No pertinent past surgical history Past Anesthesia History No Hx of Anesthesia Complications and No Family Hx of Anesthesia Complications History of PONV No Hx of PONV and No Hx of Motion Sickness Social History Smoking Status: Never smoker Do You Dip or Chew Tobacco: No Hx Alcohol Use: No Hx Substance Use: No substance use type: does not use Review of Systems denies fever/cough/ colds/ chest pain/ SOB/ EARL denies EARL Physical Exam Vital Signs Last Vital Signs Temp 36.8 C 10/30/23 07:17 Pulse 88 10/30/23 07:17 Resp 20 10/30/23 07:17 BP 137/89 10/30/23 07:17 Pulse Ox 93 10/30/23 07:17 O2 Del Method Room Air 10/30/23 07:17 O2 Flow Rate 2 10/30/23 02:59 ENMT Mouth: + dentures; no TMJ abnormality and no dentition abnormality Thyromental Distance: > or= 3.5 Finger Breadths Mallampati Class: IV Neck neck extension not limited Respiratory normal respiratory effort; no respiratory distress Auscultation: lungs clear to auscultation bilaterally Cardiovascular Rate/Rhythm: regular rate and regular rhythm Neurologic moves all extremities Psychiatric Orientation: alert and oriented x 3 Testing Laboratory Results 10/30/23 05:48 10/30/23 05:48 Urine Color Yellow 10/29/23 16:45 Urine Appearance Clear (Clear) 10/29/23 16:45 Urine pH 7.0 (4.5-7.5) 10/29/23 16:45 Ur Specific [place] > 1.045 (1.000-1.030) H 10/29/23 16:45 Urine Protein 2+ (Negative) H 10/29/23 16:45 Urine Glucose (UA) Negative (Negative) 10/29/23 16:45 Urine Ketones Negative (Negative) 10/29/23 16:45 Urine Nitrite Negative (Negative) 10/29/23 16:45 Ur Leukocyte Esterase Negative (Negative) 10/29/23 16:45 Urine WBC (Auto) 0-5 /hpf (0-5) 10/29/23 16:45 Urine RBC (Auto) 0-2 /hpf (0-2) 10/29/23 16:45 U Hyaline Cast (Auto) 0-2 /lpf (0-2) 10/29/23 16:45 U Epithel Cells (Auto) 0-2 /hpf (0-2) 10/29/23 16:45 Urine Bacteria (Auto) None Seen (None Seen) 10/29/23 16:45
--- NOTE | 2023-10-30 08:19 | Surgery Consultation ---
Date of Consultation October 30, 2023 Assessment & Plan (1) Acute cholecystitis: cholelithiasis w/ cholecystitis. Slight bump in bilirubin, will attempt cholangiogram plan for robotic assisted laparoscopic cholecystectomy with possible cholangiogram risks discussed to include but not limited to bleeding, infection, retained stone, bile leak, open surgery, damage to surrounding structures including bile duct, need for future or more extensive surgery, failure to treat symptoms, and risks of anesthesia. wound care instructions, activity restrictions, and return precautions given Dr. Pope on over weekend (2) HTN (hypertension): (3) Chronic GERD: History of Present Illness Attending Physician: Jimmy Park MD History of Present Illness 83 y/o male presented to ED w/ abd pain x 3-4 days. Had flu like symptoms, then developed RUQ pain. No prior episodes. No prior abd surgeries, on 81mg ASA, no other blood thinners. Allergies Allergy/AdvReac Type Severity Reaction Status Date / Time lisinopril AdvReac Mild Cough Verified 09/14/23 13:22 Home Medications Medication Instructions Recorded Confirmed Type aspirin 81 mg tablet,delayed 81 mg PO DAILY ##0 10/05/17 10/29/23 History release (Willie Low Dose Aspirin) vitamin E 268 mg (400 unit) capsule 400 unit PO DAILY ##0 10/05/17 10/29/23 History cholecalciferol (vitamin D3) 125 1,000 unit PO DAILY #0 tabs 10/15/21 10/29/23 History mcg (5,000 unit) tablet pantoprazole 20 mg tablet,delayed 20 mg PO DAILY PRN Heartburn #90 11/18/22 10/29/23 Rx release tabs latanoprost 0.005 % eye drops 1 drp ophthalmic (eye) DAILY 02/04/23 10/29/23 History red yeast rice 600 mg tablet 600 mg PO .QOD 02/04/23 10/29/23 History travoprost 0.004 % eye drops 1 drp OPB PM #1 btl 02/04/23 10/29/23 History (Travatan Z) metoprolol succinate 25 mg 25 mg PO DAILY #90 tabs 04/21/23 10/29/23 Rx tablet,extended release 24 hr vit C 250 mg-E 90 mg-zinc 40 1 tab PO BID 09/14/23 10/29/23 History mg-copper 1 on-mqhwtr-tkmdpt chew tablet (PreserVision AREDS-2) amlodipine 2.5 mg tablet 2.5 mg PO HS 10/29/23 10/29/23 History Patient History Medical History Glaucoma HTN (hypertension) Surgical History History of eye surgery No pertinent past surgical history Family History Father FHx: heart disease Mother Colorectal cancer Congestive heart failure due to hypertension Other FHx: cancer FHx: hypertension Denies family history of Ovarian cancer Prostate cancer Breast cancer Lung cancer Social History Smoking Status: Never smoker Second Hand Exposure: No; Do You Dip or Chew Tobacco: No; Hx Alcohol Use: No Hx Substance Use: No Preferred Language: [place] Leonean Communication Ability: Effective Visual Impairment: Limited Hearing Ability: Normal Waterfront Director Required: No Beliefs That Will Affect Care: None marital status: Current Living Situation: Spouse and Family current occupational status: employed and retired Other Information That Helps Us Care for You: No Feels Safe at Home: Yes Safety Concerns: Feels Safe At This Time Childhood Exposure to Second-Hand Smoke: Yes Diet: regular caffeine: Yes (soda) Dental Care, Regularly: Yes Physical Activity Frequency: Does not Exercise Seatbelt Use: always Sunscreen Use: No Do you think of yourself as: straight/heterosexual Assistive Devices: None Review of Systems Review of Systems: All systems reviewed & are unremarkable except as noted in HPI & below Physical Exam Constitutional: WD/WN, vitals as above Respiratory: normal respiratory effort, lungs clear to auscultation Cardiovascular: RRR, no murmur, no edema Gastrointestinal (Abdomen): Percussion/Palpation: + abdomen tender (RUQ ttp); no guarding, abdomen not rigid and no hernia Results & Data Vital Signs (Past 12 Hours) Vital Signs Temp Pulse Pulse Resp BP Pulse Ox O2 Del Method 10/30/23 07:17 36.8 C 88 20 137/89 93 Room Air 10/30/23 07:00 80 10/30/23 02:59 36.8 C 75 16 116/80 92 Nasal Cannula 10/29/23 22:00 93 H 10/29/23 21:30 Room Air 10/29/23 21:14 94 H 10/29/23 21:09 36.9 C 93 H 18 130/84 97 Room Air O2 Flow Rate 10/30/23 07:17 10/30/23 07:00 10/30/23 02:59 2 10/29/23 22:00 10/29/23 21:30 10/29/23 21:14 10/29/23 21:09 Laboratory Results Laboratory Results WBC 16.02 K/ul (4.8-10.8) H 10/30/23 05:48 RBC 4.69 M/uL (4.70-6.10) L 10/30/23 05:48 Hgb 13.3 g/dl (14.0-18.0) L 10/30/23 05:48 Hct 39.9 % (42.0-52.0) L 10/30/23 05:48 MCV 85.1 fL (80.0-100.0) 10/30/23 05:48 MCH 28.4 pg (25.0-34.0) 10/30/23 05:48 MCHC 33.3 g/dL (32.0-36.0) 10/30/23 05:48 RDW Std Deviation 41.3 fL (36.4-46.3) 10/30/23 05:48 RDW Coeff of Peg 13.3 % (11.5-14.5) 10/30/23 05:48 Plt Count 170 K/uL (130-400) 10/30/23 05:48 MPV 9.5 fL (9.4-12.4) 10/30/23 05:48 Immature Gran % (Auto) 0.7 % 10/30/23 05:48 Neut % (Auto) 90.8 % 10/30/23 05:48 Lymph % (Auto) 4.1 % 10/30/23 05:48 [place] % (Auto) 4.1 % 10/30/23 05:48 Eos % (Auto) 0.0 % 10/30/23 05:48 Baso % (Auto) 0.3 % 10/30/23 05:48 Neut # (Auto) 14.54 K/uL (1.40-6.50) H 10/30/23 05:48 Lymph # (Auto) 0.66 K/uL (1.20-3.40) L 10/30/23 05:48 [place] # (Auto) 0.66 K/uL (0.11-0.59) H 10/30/23 05:48 Eos # (Auto) 0.00 K/uL (0.00-0.50) 10/30/23 05:48 Baso # (Auto) 0.05 K/uL (0.00-0.20) 10/30/23 05:48 Immature Gran # (Auto) 0.11 K/uL (0.01-0.20) 10/30/23 05:48 Rouleaux 1+ 10/30/23 05:48 Sodium 137 mmol/L (136-145) 10/30/23 05:48 Potassium 4.8 mmol/L (3.5-5.1) D 10/30/23 05:48 Chloride 104 mmol/L (98-107) 10/30/23 05:48 Carbon Dioxide 26 mmol/L (21-32) 10/30/23 05:48 Anion Gap 7 (3-11) 10/30/23 05:48 BUN 30 mg/dl (6-23) H 10/30/23 05:48 Creatinine 1.88 mg/dl (0.6-1.4) H D 10/30/23 05:48 Est Cr Clr Drug Dosing 29.8 ml/min 10/30/23 05:48 Est GFR ( Amer) 38.0 ml/min 10/30/23 05:48 Est GFR (Non-Af Amer) 32.8 ml/min 10/30/23 05:48 BUN/Creatinine Ratio 16.0 (10-20) 10/30/23 05:48 Glucose 148 mg/dl (70-99(Fasting)) H 10/30/23 05:48 Calcium 8.9 mg/dl (8.6-10.3) 10/30/23 05:48 Magnesium 2.0 mg/dl (1.7-2.4) 10/29/23 14:37 Total Bilirubin 2.3 mg/dl (0.2-1.0) H 10/30/23 05:48 Direct Bilirubin 0.9 mg/dl (0-0.2) H 10/30/23 05:48 AST 26 U/L (13-39) 10/30/23 05:48 ALT 22 U/L (7-52) 10/30/23 05:48 Alkaline Phosphatase 60 U/L (34-104) 10/30/23 05:48 Troponin I High Sens 18.2 pg/ml (0-20) 10/29/23 14:37 Total Protein 6.1 gm/dl (6.0-8.3) D 10/30/23 05:48 Albumin 3.3 gm/dl (3.4-5.0) L 10/30/23 05:48 Globulin 3.6 gm/dl (2.5-4.0) 10/29/23 14:37 Albumin/Globulin Ratio 1.1 (0.9-2) 10/29/23 14:37 Lipase 12 U/L (11-82) 10/29/23 14:37 Urine Color Yellow 10/29/23 16:45 Urine Appearance Clear (Clear) 10/29/23 16:45 Urine pH 7.0 (4.5-7.5) 10/29/23 16:45 Ur Specific [place] > 1.045 (1.000-1.030) H 10/29/23 16:45 Urine Protein 2+ (Negative) H 10/29/23 16:45 Urine Glucose (UA) Negative (Negative) 10/29/23 16:45 Urine Ketones Negative (Negative) 10/29/23 16:45 Urine Blood 1+ (Negative) H 10/29/23 16:45 Urine Nitrite Negative (Negative) 10/29/23 16:45 Urine Bilirubin Negative (Negative) 10/29/23 16:45 Urine Urobilinogen Negative (Negative) 10/29/23 16:45 Ur Leukocyte Esterase Negative (Negative) 10/29/23 16:45 Urine WBC (Auto) 0-5 /hpf (0-5) 10/29/23 16:45 Urine RBC (Auto) 0-2 /hpf (0-2) 10/29/23 16:45 U Hyaline Cast (Auto) 0-2 /lpf (0-2) 10/29/23 16:45 U Epithel Cells (Auto) 0-2 /hpf (0-2) 10/29/23 16:45 Urine Bacteria (Auto) None Seen (None Seen) 10/29/23 16:45 Impressions Abdomen/Pelvis CT 10/29/23 15:21 CT abd pelvis IV con only CLINICAL HISTORY: epig pain, vomiting TECHNIQUE: Helical axial images of the abdomen and pelvis were obtained and displayed. Automated dose lowering techniques and/or adjustment according to patient size were utilized for this exam. This exam was performed with intravenous contrast. CT DOSE: 1060.7 mGy.cm COMPARISON: None available at the time of this dictation. FINDINGS: Lower chest: No acute abnormality. Liver: Unremarkable. No focal lesions are seen. Gallbladder and biliary tree: There is cholecystic edema is seen with distention of the gallbladder. Gallbladder wall measures 2 to 3 mm. A stone is incidentally noted in the gallbladder neck. No intra- or extrahepatic biliary ductal dilation. Pancreas: Unremarkable, no focal lesions. Spleen: Unremarkable. Adrenals: Unremarkable. Kidneys and ureters: Unremarkable. Bladder: Limited evaluation due to underdistention. 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 Bowel: Diverticulosis is seen without diverticulitis. The appendix is normal. Hiatal hernia is seen. Lymph nodes Retroperitoneal: Unremarkable. Pelvic: Unremarkable. Mesenteric: Unremarkable. Peritoneum: Normal. Vessels: Atherosclerotic calcifications are seen. Abdominal wall: Unremarkable. Bones: Degenerative changes in the visualized spine. IMPRESSION: Pericholecystic edema and borderline prominence of the gallbladder wall, findings may represent acute cholecystitis. ACT 112: Negative or not required by law. Electronically signed by: Mohit Posada M.D. 10/29/2023 4:20 PM Chest X-Ray 10/29/23 15:22 SINGLE VIEW CHEST CLINICAL HISTORY: Generalized abdominal pain. FINDINGS: 2 AP, portable, upright chest radiographs are compared to study dated 10/05/2017. A hiatal hernia is noted. The heart is enlarged noting atherosclerotic calcification of the thoracic aorta. The pulmonary vasculature is noncongested. Chronic fissural thickening is similar to previous. There is bibasilar scarring/atelectasis. The lungs and pleural spaces are otherwise clear. No pneumothorax is seen. The skeletal structures are osteopenic. The bony thorax is grossly intact. Degenerative change is noted in the spine. IMPRESSION: Cardiomegaly with no active disease in the chest. ACT 112: Negative or not required by law. Electronically signed by: Meet Ahumada M.D. 10/29/2023 3:54 PM Gallbladder Ultrasound 10/29/23 16:34 Exam(s): US GALLBLADDER EXAM: US Abdomen Limited, Gallbladder CLINICAL HISTORY: Reason for exam: poss janet. TECHNIQUE: Real-time ultrasound of the right upper quadrant with image documentation. COMPARISON: None. FINDINGS: Limitations: Exam is limited due to gas artifact in the bowel and body habitus. Liver: Diffuse fatty liver. The liver measures 14.2 cm. Gallbladder: There is sludge within the gallbladder. No gallstones visualized. The gallbladder wall measures 3 mm. Difficult to assess my fist sign due to medical condition. Common bile duct: The common bile duct measures 3.5 mm. No stones. No dilation. Pancreas: The pancreas is obscured. Right kidney: The right kidney is unremarkable with no hydronephrosis. Other vasculature: The pulse and vein reveals the bladder below flow. Free fluid: There is small amount of ascites surrounding the liver. IMPRESSION: 1. Sludge within the gallbladder with borderline thickening of gallbladder wall. No gallstones visualized. Cannot entirely exclude acalculous cholecystitis. If cholecystitis is suspected, recommend follow-up with HIDA scan. 2. Diffuse fatty liver, remainder of the right upper quadrant ultrasound unremarkable. Electronically signed by: Eboni Peters MD 10/29/23 21:[address] personally reviewed and interpreted, agree w/ cholelithiasis and cholecy stititis. PG Care Time/CCT Total # of Minutes Spent Total Time Spent with Patient: Total time spent is greater than 50% in coordination of care (as documented) at patient's floor/unit and/or counseling patient: Coding Level of Care Code 18144 IN/OBS CONSULT LVL 3,45M Diagnoses Acute cholecystitis K81.0 HTN (hypertension) I10 Chronic GERD K21.9
[2023-10-30] MEDS ORDERED: DEXAMETHASONE SOD INJ 4 MG/ML VIAL ONE (08:47)
[2023-10-30] MEDS ORDERED: ONDANSETRON INJ 2 MG/ML 2 ML VIAL ONE (08:47)
[2023-10-30] MEDS ORDERED: ePHEDrine sulfate 50 MG/ML AMP ONE (08:51)
[2023-10-30] MEDS ORDERED: SUGAMMADEX SODIUM 200 MG/2 ML VIAL IV ONE (08:56)
[2023-10-30] MEDS ORDERED: LATANOPROST 0.005% OP SOLN 2.5 ML BTL OPB SCH (09:00)
[2023-10-30] MEDS: BUPIVACAINE 0.5 % 5 MG/1 ML MPF 30ML VIAL ONE (09:29)
[2023-10-30] MEDS: IOPAMIDOL INJ 61% 15 ML VIAL INSTIL ONE (09:33)
--- NOTE | 2023-10-30 10:00 | Operative Report ---
PG Post Operative Report Pre & Post Diagnosis Operation Date: 10/30/23 07:00 Pre-Op Diagnosis: Acute cholecystitis Post-Op Diagnosis: gangrenous bilary acute cholecystitis I identified the patient and participated in the time-out.: Yes Procedure Operation Date: 10/30/23 07:00 Actual Procedures p Laparoscopic Cholecystectomy with cholangiogram(Not Applicable) - Nav Manzanares DO, JULITA Surgeon Nav Manzanares DO, FACS Dye Jig Operator Emily Cardoza Estimated Blood Loss 25 Findings Consistent with Post-Op Diagnosis Gangrenous, perforated cholecystitis. Critical view of safety obtained. Attempted cholangiogram unable to be performed due to friable nature of gallbladder and cystic duct. Cystic duct dilated, clips did not reach across, stapled with sheehan loaded 30 mm stapler. Hemostasis achieved. Drain placed Specimens Gallbladder Drains 10 mm flat CONNIE in gallbladder fossa Anesthesia Type General Complications none Disposition Accompanied Patient To Recovery: No Disposition: Recovery Room Indications 83-year-old male presented with signs symptoms of acute cholecystitis, plan for laparoscopic cholecystectomy. The risks of the procedure were discussed, all questions were answered, and the patient agreed to proceed with surgery as planned. Description of Procedure The patient was properly identified, consented, and taken to the operating room where he was placed in the supine position. General endotracheal anesthesia was induced. SCDs and a safety belt were placed. Preoperative antibiotics were administered. The patient's abdomen was prepped and draped in the standard sterile fashion. A surgical timeout was performed and all parties were in agreement that this was the correct patient and procedure to be performed and we continued as planned. An incision was made superior and to the left of the umbilicus overlying the rectus muscle and the Veress needle was inserted. Saline drop test confirmed entry into the peritoneum. The abdomen was insufflated with carbon dioxide which the patient tolerated without incident. The abdomen was then entered usin g the Optiview technique and a 5 mm trocar. The laparoscope was inserted and no damage from initial trocar or Veress needle placement was noted, no gross abnormalities were noted within the 4 quadrants of the abdomen. An 11 mm port was placed in the subxiphoid position and two 5 mm ports were then placed in the right subcostal position. The patient was placed in reverse Trendelenburg position and rotated towards the left. The gallbladder appeared gangrenous and severely inflamed. There was omental adhesions overlying the liver and there was evidence of fibrinous exudate throughout the right upper quadrant as well as some apparent bile. The omentum was peeled down off of the dome of the liver and the dome of the gallbladder and immediately bile and stones started to spill out. This indicated a perforated gallbladder. The bile and small stones were suctioned. The dome of the gallbladder was retracted towards the left upper quadrant and the infundibulum was retracted toward the right lower quadrant revealing Calot's triangle. Peritoneal attachments were taken down with electrocautery and blunt dissection. The cystic duct and artery were circumferentially dissected. A window of safety was obtained showing the cystic duct entering the gallbladder with no aberrant structures noted. An attempted cholangiogram was performed. The Pires catheter was clamped across the infundibulum of the gallbladder and the needle inserted. When the needle was inserted and saline injected, the saline spilled out through the insertion site. We attempted again this is the same case. We did attempt a cholangiogram but it was apparent that there was spillage of bile. Since the duct was so friable I elected not to complete the cholangiogram. The cystic duct was not only friable but also mildly dilated. We attempted to clip it but the clips did not reach across. At this point I upgraded to a 12 mm port in the subxiphoid position. Then used a sheehan loaded 30 mm Endo JESUS stapler to divide the cystic duct. The cystic artery doubly clipped and divided. An additional anterior branch was clipped and divided. The gallbladder was then lifted off the gallbladder fossa with electrocautery. The gallbladder was placed in an Endo Catch bag and removed through the subxiphoid port site. The right upper quadrant was irrigated and hemostasis was found to be good. A 10 mm flat CONNIE denise in was then placed into the gallbladder fossa and exited through the right lateral port site. This was secured in place with 2-0 nylon suture. 5 mm trochars were removed under direct visualization and the abdomen was allowed to collapse. The subxiphoid port site fascia was closed with 0 Vicryl suture in a [id number] fashion using the Dain-Abdirahman device prior to removal of the ports. The wound was irrigated, and the skin of all ports was closed with 4-0 Monocryl subcuticular sutures. Dermabond was placed over the wounds. The patient was extubated in the operating room and taken to the PACU where he recovered without apparent incident. All sponge, instrument and needle counts were correct at the conclusion of the procedure. The patient tolerated the procedure well. The nurse practitioner was present and scrubbed for the entirety of the case and was essential in positioning the patient, prepping and draping, retraction and exposure, driving the laparoscope, removal of the gallbladder, closure the incisions, and placement of the dressings. I attest to the content of the Intraoperative Record and any orders documented therein. Any exceptions are noted below.
[2023-10-30] MEDS: ONDANSETRON INJ 2 MG/ML 2 ML VIAL IV PRN (10:30)
--- NOTE | 2023-10-30 11:13 | Fluoroscopy Report ---
[place] cholangiogram OR CLINICAL HISTORY: CHOLANGIOGRAM TECHNIQUE: 2 views were obtained with the C-arm in the OR with the above procedure. Total fluoroscopy time was 31.5 seconds. Radiation dose was 6.04 mGy. Comparison: Comparison is made to CT abdomen pelvis 10/29/2023 FINDINGS/IMPRESSION: Intraoperative images were obtained of cholangiogram. No opacification of the ga llbladder was definitely seen. Please correlate with intraoperative fluoroscopy and operative report. ACT 112: Negative or not required by law. Electronically signed by: Mohit Posada M.D. 10/30/2023 11:11 AM
[2023-10-30] MEDS: fentaNYL citrate PF 100 MCG/2 ML VIAL IV PRN (11:40)
[2023-10-30] MEDS ORDERED: MoRPHine SULFATE 2 MG/ML CARP IV PRN (13:41)
[2023-10-30] MEDS ORDERED: MoRPHine SULFATE 4 MG/ML 1 ML CARP\\VIAL IV PRN (13:41)
[2023-10-30] MEDS ORDERED: ACETAMINOPHEN 325 MG TAB PO PRN (13:41)
[2023-10-30] MEDS ORDERED: oxyCODONE HCL IR 5 MG TAB (IMMEDIATE RELEASE) PO PRN ×2 (13:41)
--- NOTE | 2023-10-30 15:38 | Hospitalist Progress Note ---
Date of Service October 30, 2023 Assessment & Plan (1) Acute cholecystitis: Plan: - Patient presented with generalized weakness, nausea, and vomiting that began on 10/27/2023 - On admission, leukocytosis of 23.68 with neutrophil predominance, elevated total bili at 1.7 - CT A/P revealed findings consistent with acute cholecystitis - Zosyn 4.5 g IV q8h - last dose 11/02/2023 - Laparoscopic cholecystectomy on 10/30/[address] Manzanares -- Per the operative note, the gallbladder appeared gangrenous and severely inflamed, as well as a perforated gallbladder. Patient tolerated the procedure well. Zofran as needed for nausea and vomiting Acetaminophen IV q8h as needed for mild pain or fever Oxycodone 5 mg for moderate pain, 10 mg for severe pain Dilaudid IV q4h as needed for breakthrough pain (2) HTN (hypertension): Plan: Patient took metoprolol the morning of 10/28 Started metoprolol tartrate 5 mg IV Q6 hours - switch back to p.o. when able Continue to hold amlodipine until patient is able to take p.o. meds Plan Updated family members at bedside Reviewed operative note Started IV metoprolol Advance diet as tolerated, currently well tolerating clear liquids Continue to closely monitor in PCU CODE STATUS: Full code VTE PPx: SCDs (hold chemical DVT PPx due to surgery) Admission and Anticipated Discharge Date Admission Date: October 29, 2023 Subjective Patient seen and evaluated at bedside postoperatively with multiple family members present. He had a laparoscopic cholecystectomy today, 10/30/23, with Dr. Manzanares. Per the operative note, the gallbladder appeared gangrenous and severely inflamed, as well as a perforated gallbladder. The operative report notes that the patient tolerated the procedure well. The patient was transferred to the PCU postoperatively for closer monitoring due to his perforated gallbladder. At the time my evaluation, patient had no complaints. He reports that his pain is well-controlled with medication. Denies fever, chills, nausea, vomiting, shortness of breath, or chest pain. Physical Exam Physical Exam: General: No acute distress, nondiaphoretic, well-developed, well-nourished. Skin: The skin was without rashes, erythema, edema, or bruising. Cardiac: Regular rate and rhythm without murmurs gallops or rubs. Pulm: Clear to auscultation bilaterally without wheezes, rales or rhonchi. No retractions or accessory muscle use. Abdominal: Minimal tenderness to palpation of RUQ. Positive bowel sounds x 4. Soft, nondistended without masses or organomegaly. No guarding or rebound tenderness. Neuro: A&O x3. No focal neurological deficits. Results & Data Results & Data Vital Signs (Past 12 Hours) Vital Signs Temp Pulse Pulse Pulse Resp BP BP 10/30/23 14:30 82 16 10/30/23 14:26 83 22 10/30/23 14:26 118/74 10/30/23 14:00 93 H 19 10/30/23 13:46 10/30/23 12:25 87 18 129/81 10/30/23 11:55 36.4 C L 87 15 129/83 10/30/23 11:40 87 16 116/79 10/30/23 11:25 88 20 136/97 10/30/23 11:10 88 19 119/78 10/30/23 10:55 89 20 136/97 10/30/23 10:45 36.3 C L 92 H 20 141/89 H 10/30/23 10:35 89 14 135/83 10/30/23 10:25 88 16 120/73 10/30/23 10:15 92 H 20 130/83 10/30/23 10:08 36.4 C L 85 18 123/77 10/30/23 07:17 36.8 C 88 20 137/89 10/30/23 07:00 80 Pulse Ox O2 Del Method O2 Flow Rate 10/30/23 14:30 92 10/30/23 14:26 91 10/30/23 14:26 10/30/23 14:00 94 10/30/23 13:46 90 10/30/23 12:25 95 Nasal Cannula 3 10/30/23 11:55 95 Nasal Cannula 3 10/30/23 11:40 95 Nasal Cannula 3 10/30/23 11:25 94 Nasal Cannula 3 10/30/23 11:10 94 Nasal Cannula 3 10/30/23 10:55 93 Nasal Cannula 3 10/30/23 10:45 94 Nasal Cannula 3 10/30/23 10:35 93 Nasal Cannula 2 10/30/23 10:25 95 Oxymask 5 10/30/23 10:15 95 Oxymask 10/30/23 10:08 95 Oxymask 10/30/23 07:17 93 Room Air 10/30/23 07:00 Laboratory Results Reviewed CBC Reviewed CMP Diagnostic Findings Reviewed operative cholangiogram 10/30/2023: TECHNIQUE: 2 views were obtained with the C-arm in the OR with the above procedure. Total fluoroscopy time was 31.5 seconds. Radiation dose was 6.04 mGy. Comparison: Comparison is made to CT abdomen pelvis 10/29/2023 FINDINGS/IMPRESSION: Intraoperative images were obtained of cholangiogram. No opacification of the gallbladder was definitely seen. Please correlate with intraoperative fluoroscopy and operative report. PG Care Time/CCT Total # of Minutes Spent Total Time Spent with Patient: Total time spent is greater than 50% in coordination of care (as documented) at patient's floor/unit and/or counseling patient: Coding Level of Care Code 04202 SUB INP/OBS CARE 3/50MIN Diagnoses Acute cholecystitis K81.0 HTN (hypertension) I10
[2023-10-30] MEDS: METOPROLOL TARTRATE 1 MG/ML VIAL IV SCH (18:00)
[2023-10-30] MEDS: LACTATED RINGER'S 1,000 ML IV SCH (20:41)
[2023-10-30] MEDS ORDERED: NON-FORMULARY PATIENT'S OWN MED SCH (21:00)
[2023-10-31] MEDS: METOPROLOL TARTRATE 1 MG/ML VIAL IV STA (01:08)
[2023-10-31 01:31] LABS: Base Excess ABG -2.9 mEq/L (-9-1.8); HCO3 ABG 21 mmol/L (19-24); Oxygen Saturation ABG 96.6 % (90-95); PCO2 ABG 33 mmHg (35-46); PO2 ABG 69 mmHg (80-95); pH ABG 7.41 (7.35-7.45)
[2023-10-31] MEDS: SODIUM CHLORIDE 0.9% 500 ML IV ONE (01:34)
[2023-10-31 01:35] LABS: Hematocrit (blood only) 36.2 % (42.0-52.0); Hemoglobin 12.3 g/dl (14.0-18.0); Mean Corpuscular Hemoglobin 28.1 pg (25.0-34.0); Mean Corpuscular Volume 82.6 fL (80.0-100.0); Mean Platelet Volume 9.6 fL (9.4-12.4); Platelet Count 150 K/uL (130-400); RDW Coefficient of Variation 13.2 % (11.5-14.5); RDW Standard Deviation 40.1 fL (36.4-46.3); Red Blood Count 4.38 M/uL (4.70-6.10); White Blood Count 16.86 K/ul (4.8-10.8)
--- NOTE | 2023-10-31 01:36 | Communication Note ---
Date of Service: October 31, 2023 Notified by RN that patient was in a fib with RVR and new oxygen requirement. New onset a fib. Given Lopressor 5 mg x 1 and 500 mL NSS bolus. BP on the softer side. Given dig 250 mcg. Repleted electrolytes as below. Given albumin 25 gm x2. If no improvement may need amiodarone. Converted to NSR 05:55. Exam: alert, oriented, interactive, NAD, irregularly irregular and tachycardic, clinically well perfused May have been a proceeding aspiration event. CXR reviewed without signs of PTX or obvious consolidation/infiltrate. Lung elliott significantly diminished. Ordered - Mg, Phos, BMP, CBC, renal function panel, ABG, procal, CRP. Procal and CRP significantly elevated. Mg < 2, K < 4, Phos 2 - repleted electrolytes. Will also order CT PE as patient with new oxygen requirement and tachycardia. Awaiting formal read. Tachycardia may be compensatory as there does appear to be interval worsening of imaging. MRSA nares ordered. Empiric MRSA coverage added with linezolid 600 mg Q12H. Is on Zosyn already which would cover aspiration pneumonia. Continue with supplemental oxygen as needed. Patient was on Q6H metop 5 mg IV as he is NPO. Held in setting of soft BPs. Case discussed with Dr. El Resident Activity Tracking Resident Involvement: Resident Care Provided Care Provided: Adult Hospital Medicine
[2023-10-31 01:38] LABS: Allen Test Pos (Pos)
[2023-10-31 01:52] LABS: BUN Creatinine Ratio 18.6 (10-20); Calcium 8.5 mg/dl (8.6-10.3); Creatinine Clr Calc Pharmacy 33.6 ml/min; Est GFR (African American) 43.8 ml/min; Est GFR (Non-African American) 37.8 ml/min; Magnesium 1.9 mg/dl (1.7-2.4); Potassium 3.8 mmol/L (3.5-5.1)
[2023-10-31] MEDS ORDERED: POTASSIUM PHOS 3 MMOL/1 ML INFUSION IV STA (01:55)
[2023-10-31] MEDS: DIGOXIN 250 MCG in SYRINGE 9 ML IV STA (02:05)
[2023-10-31 02:08] LABS: C Reactive Protein 34.59 mg/dl (0-0.5)
[2023-10-31 02:10] LABS: Basophils # (auto) 0.04 K/uL (0.00-0.20); Basophils % (auto) 0.2 %; Echinocytes 2+; Eosinophils # (auto) 0.02 K/uL (0.00-0.50); Eosinophils % (auto) 0.1 %; Immature Granulocytes % (auto) 0.6 %; Lymphocytes % (auto) 5.3 %; Monocytes # (auto) 0.29 K/uL (0.11-0.59); Monocytes % (auto) 1.7 %; Neutrophils # (auto) 15.51 K/uL (1.40-6.50); Neutrophils % (auto) 92.1 %
[2023-10-31] MEDS: MAGNESIUM SULFATE / D5W 1 GM/100 ML BAG IV ONE (02:30)
[2023-10-31] MEDS: POTASSIUM CHLORIDE / WTR 10 MEQ/100 ML PLCT IV SCH (02:30)
[2023-10-31] MEDS: OPTIRAY 320 125ml IV ONE (02:59)
[2023-10-31] MEDS: POTASSIUM PHOSPHATE 21 MMOL in SODIUM CHLORIDE 0.9% 500 ML IV ONE (03:22)
[2023-10-31] MEDS: ALBUMIN 25% 25 GM/100 ML VIAL IV SCH (04:22)
[2023-10-31] MEDS: LINEZOLID 600 MG/300 ML BAG IV SCH (05:06)
--- NOTE | 2023-10-31 06:11 | Electrocardiogram Report ---
Test Reason : Blood Pressure : / mmHG Vent. Rate : 100 BPM Atrial Rate : 100 BPM P-R Int : 178 ms QRS Dur : 088 ms QT Int : 344 ms P-R-T Axes : 040 -02 -01 degrees QTc Int : 443 ms Normal sinus rhythm Cannot rule out Anterior infarct , age undetermined Nonspecific T wave abnormality Abnormal ECG When compared with ECG of 08-OCT-2013 02:09, Premature ventricular complexes are no longer Present Confirmed by Samuel Frazier ([id number]) on 10/31/2023 6:11:06 AM Referred By: REFERRED SELF Confirmed By:Samuel Frazier
[2023-10-31 06:29] LABS: Hematocrit (blood only) 36.1 % (42.0-52.0); Hemoglobin 12.2 g/dl (14.0-18.0); Mean Corpuscular Hemoglobin 28.8 pg (25.0-34.0); Mean Corpuscular Hgb Conc 33.8 g/dL (32.0-36.0); Mean Corpuscular Volume 85.1 fL (80.0-100.0); Mean Platelet Volume 9.6 fL (9.4-12.4); Platelet Count 151 K/uL (130-400); RDW Coefficient of Variation 13.3 % (11.5-14.5); RDW Standard Deviation 41.4 fL (36.4-46.3); Red Blood Count 4.24 M/uL (4.70-6.10); White Blood Count 18.85 K/ul (4.8-10.8)
[2023-10-31 06:49] LABS: Albumin Globulin Ratio 1.2 (0.9-2); Albumin Level 3.3 gm/dl (3.4-5.0); Basophils # (auto) 0.05 K/uL (0.00-0.20); Basophils % (auto) 0.3 %; Calcium 8.5 mg/dl (8.6-10.3); Creatinine Clr Calc Pharmacy 35.8 ml/min; Echinocytes 1+; Est GFR (African American) 42.3 ml/min; Est GFR (Non-African American) 36.5 ml/min; Globulin 2.7 gm/dl (2.5-4.0); Immature Granulocytes # (auto) 0.16 K/uL (0.01-0.20); Immature Granulocytes % (auto) 0.8 %; Lymphocytes # (auto) 0.73 K/uL (1.20-3.40); Lymphocytes % (auto) 3.9 %; Magnesium 2.2 mg/dl (1.7-2.4); Monocytes # (auto) 0.58 K/uL (0.11-0.59); Monocytes % (auto) 3.1 %; Neutrophils # (auto) 17.33 K/uL (1.40-6.50); Neutrophils % (auto) 91.9 %; Potassium 4.1 mmol/L (3.5-5.1)
--- NOTE | 2023-10-31 06:53 | CT Scan Report ---
Exam(s): CTA CHEST IV Amt: 119 ml opti 320 EXAM: CT Angiography Chest With Intravenous Contrast CLINICAL HISTORY: Reason for exam: PE. TECHNIQUE: Axial computed tomographic angiography images of the chest with intravenous contrast. CTDI is 26.18 mGy and DLP is 911.63 mGy-cm. Automated exposure control was utilized for the study. A dose lowering technique was utilized adhering to the principles of ALARA. MIP reconstructed images were created and reviewed. COMPARISON: No relevant prior studies available. FINDINGS: Pulmonary arteries: Unremarkable. No acute pulmonary embolism. Aorta: Ectatic ascending aorta measuring 4.3 cm in diameter. No thoracic aortic aneurysm. Lungs: Bilateral lower lobe consolidations, right more than left. Pleural space: Small bilateral pleural effusions. No pneumothorax. Heart: Unremarkable. No cardiomegaly. No significant pericardial effusion. No evidence of RV dysfunction. Bones/joints: No acute fracture. No dislocation. Mild L1 chronic anterior compression deformity with 20% loss of vertebral body height. Soft tissues: Small hiatus hernia. Lymph nodes: Unremarkable. No enlarged lymph nodes. Liver: Trace perihepatic fluid is seen along with small focus of air. Gallbladder and bile ducts: Cholecystectomy. Tubes, lines and devices: There is a drain seen in the right subhepatic region. IMPRESSION: 1. No acute pulmonary embolism 2. Bilateral lower lobe consolidations and small pleural effusions 3. Trace perihepatic fluid along with foci of free air. This is likely related to postoperative drain in the right subhepatic region. Electronically signed by: Jonathan Rene MD 10/31/23 06:53 AM
--- NOTE | 2023-10-31 07:05 | Electrocardiogram Report ---
Test Reason : Blood Pressure : / mmHG Vent. Rate : 150 BPM Atrial Rate : 129 BPM P-R Int : 000 ms QRS Dur : 096 ms QT Int : 314 ms P-R-T Axes : 000 -08 -35 degrees QTc Int : 496 ms Atrial fibrillation with rapid ventricular response Incomplete right bundle branch block Nonspecific ST abnormality Abnormal ECG When compared with ECG of 29-OCT-2023 14:37, Atrial fibrillation has replaced Sinus rhythm Vent. rate has increased BY 50 BPM Confirmed by Sharan Lr ([id number]) on 10/31/2023 7:04:55 AM Referred By: REFERRED SELF Confirmed By:Jean-Claude Lr
--- NOTE | 2023-10-31 07:31 | XRay Report ---
XR chest 1V portable CLINICAL HISTORY: new oxygen requirement TECHNIQUE: Single frontal radiograph of the chest was obtained. Comparison: Comparison is made to chest radiograph 10/29/2023 FINDINGS: No lines and tubes are seen. The cardiomediastinal silhouette is normal. Lungs are underinflated but clear. No evidence of pleural effusion or pneumothorax. IMPRESSION: Lungs are underinflated. No acute abnormalities and in particular no radiographic evidence of pneumon ia. ACT 112: Negative or not required by law. Electronically signed by: Mohit Posada M.D. 10/31/2023 7:30 AM
--- NOTE | 2023-10-31 08:28 | Hospitalist Progress Note ---
Date of Service October 31, 2023 Assessment & Plan (1) Acute cholecystitis: Plan: - Patient presented with generalized weakness, nausea, and vomiting that began on 10/27/2023 - On admission, leukocytosis of 23.68 with neutrophil predominance, elevated total bili at 1.7 - CT A/P revealed findings consistent with acute cholecystitis - Zosyn 4.5 g IV q8h - last dose 11/02/2023 - Laparoscopic cholecystectomy on 10/30/[address] Manzanares -- Per the operative note, the gallbladder was gangrenous, severely inflamed, and perforated gallbladder. - WBC still elevated at 18.85 10/31/23 -- Continue Zosyn. Possibly will require oral antibiotics upon discharge. - Advanced diet to low fiber/heart healthy 10/31/23. Zofran as needed for nausea and vomiting Acetaminophen IV q8h as needed for mild pain or fever Oxycodone 5 mg for moderate pain, 10 mg for severe pain (2) Acute hypoxic respiratory failure: Plan: - Patient had new onset A-fib with RVR in the early hours of 10/31/2023. -- Converted back to NSR after Lopressor, NSS bolus and digoxin. -- Repleted albumin and electrolytes. - There may have been a preceding aspiration event. -- CXR revealed no acute abnormalities and no evidence of pneumonia. -- CT PE revealed bilateral lower lobe consolidations and small pleural effusions, and trace perihepatic fluid along with foci of free air which is likely related to postoperative drain in the right subhepatic region. No acute PE. - Echocardiogram 10/31/23 - pending. - Elevated CRP 34.59 and Procal 7.93. Leukocytosis at 18.85. -- Suggestive of inflammatory bacterial origin, most likely secondary to biliary sepsis. - Patient was already on Zosyn prior to this event. Continue Zosyn. - Given MRSA swab is negative and patient is already covered for Pseudomonas and some anaerobes with Zosyn, linezolid was discontinued. - Increased O2 requirement, needing supplemental O2 at 5 L NC. - Scheduled metoprolol discontinued in the setting of low BPs. - Metoprolol tartrate 5 mg IV as needed for HR> 120, SBP> 185, DBP> 95. - Continue supplemental oxygen as needed. - Continue telemonitoring. (3) HTN (hypertension): Plan: - Patient took metoprolol the morning of 10/28 - Scheduled metoprolol discontinued and PRN ordered with parameters as noted above. - Continue to hold amlodipine until patient is able to take p.o. meds Plan Updated at bedside Reviewed tele monitoring and SpO2 Advanced diet to low fiber/heart healthy Continue to closely monitor in PCU CODE STATUS: Full code VTE PPx: SCDs (hold chemical DVT PPx due to surgery) Admission and Anticipated Discharge Date Admission Date: October 29, 2023 Subjective Patient seen and evaluated at bedside with . He had new onset A fib with RVR last night and converted back to NSR around 0600 this morning. He also had increased O2 requirement. Patient reports he was asymptomatic when he was in A fib, and denies any cardiac symptoms at this time. He is still requiring supplemental O2 at 7 L via high flow NC. He reports dyspnea on exertion, but denies any shortness of breath at rest. He does note some abdominal discomfort, but his pain is well-controlled with medication. Denies fever, chills, nausea, vomiting, urinary symptoms, or chest pain. Physical Exam Physical Exam: General: No acute distress, nondiaphoretic, well-developed, well-nourished. Skin: The skin was without rashes, erythema, edema, or bruising. Cardiac: Regular rate and rhythm without murmurs gallops or rubs. Pulm: No acute distress. Clear to auscultation bilaterally without wheezes, rales or rhonchi. Supplemental O2 at 7 L high flow NC. Abdominal: Post-op dressing clean, dry, intact. Drain in place. Minimal tenderness to palpation of RUQ. Positive bowel sounds x 4. Soft, nondistended without masses or organomegaly. No guarding or rebound tenderness. Neuro: A&O x3. No focal neurological deficits. Results & Data Results & Data Vital Signs (Past 12 Hours) Vital Signs Temp Pulse Pulse Pulse Resp BP BP 10/31/23 06:11 36.8 C 99 H 18 133/87 10/31/23 03:57 36.4 C L 157 H 20 96/62 L 10/31/23 02:05 149 H 10/31/23 02:05 94/79 L 10/31/23 01:23 153 H 83/51 L 10/31/23 01:08 146 H 114/66 10/31/23 01:07 114/66 10/31/23 00:58 10/31/23 00:45 147 H 102/82 10/31/23 00:20 76 10/30/23 23:56 83 107/65 10/30/23 23:20 36.6 C 89 18 10/30/23 21:55 87 BP Pulse Ox O2 Del Method O2 Flow Rate 10/31/23 06:11 91 Nasal Cannula 5 10/31/23 03:57 93 Nasal Cannula 6 10/31/23 02:05 10/31/23 02:05 10/31/23 01:23 10/31/23 01:08 10/31/23 01:07 10/31/23 00:58 92 Nasal Cannula 6 10/31/23 00:45 10/31/23 00:20 10/30/23 23:56 10/30/23 23:20 137/75 89 L Room Air 10/30/23 21:55 Laboratory Results Reviewed CBC Reviewed CMP, repleted electrolytes Reviewed ABG Diagnostic Findings CXR 10/31/23: FINDINGS: No lines and tubes are seen. The cardiomediastinal silhouette is normal. Lungs are underinflated but clear. No evidence of pleural effusion or pneumothorax. IMPRESSION: Lungs are underinflated. No acute abnormalities and in particular no radiographic evidence of pneumonia. Chest CTA 10/31/23: FINDINGS: Pulmonary arteries: Unremarkable. No acute pulmonary embolism. Aorta: Ectatic ascending aorta measuring 4.3 cm in diameter. No thoracic aortic aneurysm. Lungs: Bilateral lower lobe consolidations, right more than left. Pleural space: Small bilateral pleural effusions. No pneumothorax. Heart: Unremarkable. No cardiomegaly. No significant pericardial effusion. No evidence of RV dysfunction. Bones/joints: No acute fracture. No dislocation. Mild L1 chronic anterior compression deformity with 20% loss of vertebral body height. Soft tissues: Small hiatus hernia. Lymph nodes: Unremarkable. No enlarged lymph nodes. Liver: Trace perihepatic fluid is seen along with small focus of air. Gallbladder and bile ducts: Cholecystectomy. Tubes, lines and devices: There is a drain seen in the right subhepatic region. IMPRESSION: 1. No acute pulmonary embolism 2. Bilateral lower lobe consolidations and small pleural effusions 3. Trace perihepatic fluid along with foci of free air. This is likely related to postoperative drain in the right subhepatic region. PG Care Time/CCT Total # of Minutes Spent Total Time Spent with Patient: Total time spent is greater than 50% in coordination of care (as documented) at patient's floor/unit and/or counseling patient: Coding Level of Care Code 28097 SUB INP/OBS CARE 3/50MIN Diagnoses Acute cholecystitis K81.0 Acute hypoxic respiratory failure J96.01 HTN (hypertension) I10
--- NOTE | 2023-10-31 09:20 | Surgery Progress Note ---
Date of Service October 31, 2023 Assessment & Plan (1) Acute cholecystitis: Plan: Doing well POD#1 lap janet for gangrenous cholecystitis WBC still elevated, would continue Zosyn for now Can have a regular diet from surgical standpoint If deemed necessary for anticoagulation due to his Afib, would not start this until tomorrow Leave drain in place, he will be discharged with this Will continue to follow Admission and Anticipated Discharge Date Admission Date: October 29, 2023 Subjective Pt seen and examined. Pain controlled. No N/V. Tolerating clears. Went into Afib overnight. Physical Exam Constitutional: WD/WN, vitals as above Gastrointestinal (Abdomen): Incisions without erythema or drainage RUQ drain with serosanguinous fluid present Results & Data Vital Signs (Past 12 Hours) Vital Signs Temp Pulse Pulse Pulse Resp BP BP 10/31/23 09:11 36.6 C 88 21 141/88 H 10/31/23 06:11 36.8 C 99 H 18 133/87 10/31/23 03:57 36.4 C L 157 H 20 96/62 L 10/31/23 02:05 149 H 10/31/23 02:05 94/79 L 10/31/23 01:23 153 H 83/51 L 10/31/23 01:08 146 H 114/66 10/31/23 01:07 114/66 10/31/23 00:58 10/31/23 00:45 147 H 102/82 10/31/23 00:20 76 10/30/23 23:56 83 107/65 10/30/23 23:20 36.6 C 89 18 10/30/23 21:55 87 BP Pulse Ox O2 Del Method O2 Flow Rate 10/31/23 09:11 92 Nasal Cannula 6 10/31/23 06:11 91 Nasal Cannula 5 10/31/23 03:57 93 Nasal Cannula 6 10/31/23 02:05 10/31/23 02:05 10/31/23 01:23 10/31/23 01:08 10/31/23 01:07 10/31/23 00:58 92 Nasal Cannula 6 10/31/23 00:45 10/31/23 00:20 10/30/23 23:56 10/30/23 23:20 137/75 89 L Room Air 05/10/24 21:55 PG Care Time/CCT Total # of Minutes Spent Total Time Spent with Patient: Total time spent is greater than 50% in coordination of care (as documented) at patient's floor/unit and/or counseling patient: Coding Level of Care Code 91606 Post Operative Follow-Up Diagnoses Acute cholecystitis K81.0
[2023-10-31] MEDS: PANTOprazole 40 MG in SYRINGE 0 ML IV SCH (10:05)
--- NOTE | 2023-10-31 17:09 | XCELERA ---
[id number]
[2023-10-31] MEDS: DOCUSATE SODIUM 100 MG CAP PO PRN (17:52)
[2023-11-01 06:32] LABS: Basophils # (auto) 0.02 K/uL (0.00-0.20); Basophils % (auto) 0.1 %; Eosinophils # (auto) 0.03 K/uL (0.00-0.50); Eosinophils % (auto) 0.2 %; Hematocrit (blood only) 34.3 % (42.0-52.0); Hemoglobin 11.8 g/dl (14.0-18.0); Immature Granulocytes # (auto) 0.09 K/uL (0.01-0.20); Immature Granulocytes % (auto) 0.6 %; Lymphocytes # (auto) 1.07 K/uL (1.20-3.40); Mean Corpuscular Hemoglobin 28.6 pg (25.0-34.0); Mean Corpuscular Hgb Conc 34.4 g/dL (32.0-36.0); Mean Corpuscular Volume 83.1 fL (80.0-100.0); Mean Platelet Volume 9.8 fL (9.4-12.4); Monocytes # (auto) 0.83 K/uL (0.11-0.59); Monocytes % (auto) 5.4 %; Neutrophils # (auto) 13.27 K/uL (1.40-6.50); Neutrophils % (auto) 86.7 %; Platelet Count 177 K/uL (130-400); RDW Coefficient of Variation 13.2 % (11.5-14.5); RDW Standard Deviation 40.4 fL (36.4-46.3); Red Blood Count 4.13 M/uL (4.70-6.10); White Blood Count 15.31 K/ul (4.8-10.8)
[2023-11-01 07:11] LABS: Albumin Globulin Ratio 1.3 (0.9-2); Albumin Level 3.1 gm/dl (3.4-5.0); BUN Creatinine Ratio 18.5 (10-20); Bilirubin,Total 0.9 mg/dl (0.2-1.0); Calcium 8.5 mg/dl (8.6-10.3); Creatinine Clr Calc Pharmacy 38.3 ml/min; Est GFR (African American) 45.5 ml/min; Est GFR (Non-African American) 39.2 ml/min; Globulin 2.4 gm/dl (2.5-4.0); Magnesium 2.2 mg/dl (1.7-2.4); Potassium 3.7 mmol/L (3.5-5.1); Total Protein 5.5 gm/dl (6.0-8.3)
--- NOTE | 2023-11-01 08:52 | Surgery Progress Note ---
Date of Service November 01, 2023 Assessment & Plan (1) Acute cholecystitis: Plan: Doing well POD#2 lap janet for gangrenous cholecystitis WBC still elevated, but improved. Tolerating low fiber diet. No BM yet. Leave drain in place, he will be discharged with this Will continue to follow Admission and Anticipated Discharge Date Admission Date: October 29, 2023 Supervising Physician Co-Signing Physician Notes I personally saw and evaluated the patient with Shawna Russo PA-C and agree with the assessment and plan. 83-year-old male postoperative day 2 laparoscopic cholecystectomy for gangrenous cholecystitis He is tolerating a regular diet without nausea and vomiting, he is passing flatus without BM His pain is controlled, keep his drain in place, it is serosanguineous at this point He is still on some oxygen, we did have him focus on his incentive spirometry and ambulation which should help this Continue to wean his oxygen He will likely be stable for discharge from a surgical standpoint tomorrow to improve Will follow Subjective Nilton is resting in bed- he reports that he didn't get much sleep overnight. This AM, his pain is controlled. He has not moved his bowels yet. Review of Systems 2 Constitutional: as per Subjective / HPI; no fever and no chills Respiratory: no cough, no chest congestion, no dyspnea, no dyspnea on exertion and no pain with cough Cardiovascular: no chest pain, no chest pain at rest, no chest pain with activity, no radiating jaw, neck or arm pain, no dyspnea, no dyspnea at rest, no dyspnea on exertion, no lightheadedness and no calf pain Gastrointestinal: + abdominal pain (slightly tender at inc ision sites- drain in place ) Physical Exam Constitutional: WD/WN, vitals as above Gastrointestinal (Abdomen): Incisions without erythema or drainage RUQ drain with serosanguinous fluid present Results & Data Vital Signs (Past 12 Hours) Vital Signs Temp Pulse Pulse Resp BP BP Pulse Ox 11/01/23 08:00 36.6 C 79 23 159/99 H 92 11/01/23 03:30 36.4 C L 76 22 142/75 H 92 10/31/23 23:18 36.4 C L 82 20 135/73 91 10/31/23 21:58 74 10/31/23 21:54 10/31/23 21:09 Pulse Ox O2 Del Method O2 Del Method O2 Flow Rate O2 Flow Rate 11/01/23 08:00 Nasal Cannula 3.5 11/01/23 03:30 Oxymask 7 10/31/23 23:18 High Flow Nasal Cannula 4 10/31/23 21:58 10/31/23 21:54 High Flow Nasal Cannula 4 10/31/23 21:09 92 High Flow Nasal Cannula 4 PG Care Time/CCT Total # of Minutes Spent Total Time Spent with Patient: Total time spent is greater than 50% in coordination of care (as documented) at patient's floor/unit and/or counseling patient: Coding Level of Care Code 99037 Post Operative Follow-Up Diagnoses Acute cholecystitis K81.0
--- NOTE | 2023-11-01 11:26 | Hospitalist Progress Note ---
Date of Service November 01, 2023 Assessment & Plan (1) Acute cholecystitis: Plan: - Patient presented with generalized weakness, nausea, and vomiting that began on 10/27/2023 - On admission, leukocytosis of 23.68 with neutrophil predominance, elevated total bili at 1.7 - CT A/P revealed findings consistent with acute cholecystitis - Zosyn 4.5 g IV q8h - last dose 11/02/2023 - Laparoscopic cholecystectomy on 10/30/[address] Manzanares -- Per the operative note, the gallbladder was gangrenous, severely inflamed, and perforated gallbladder. - WBC still elevated, but improving -- Continue Zosyn. Possibly will require oral antibiotics upon discharge. - Advanced diet to low fiber/heart healthy 10/31/23. Well-tolerated. Zofran as needed for nausea and vomiting Acetaminophen 650 mg PO Q4H for mild pain or fever Oxycodone 5 mg for moderate pain, 10 mg for severe pain (2) Acute hypoxic respiratory failure: Plan: - Patient had new onset A-fib with RVR in the early hours of 10/31/2023. -- Converted back to NSR after Lopressor, NSS bolus and digoxin. -- Repleted albumin and electrolytes. - There may have been a preceding aspiration event. -- CXR revealed no acute abnormalities and no evidence of pneumonia. -- CT PE revealed bilateral lower lobe consolidations and small pleural effusions, and trace perihepatic fluid along with foci of free air which is likely related to postoperative drain in the right subhepatic region. No acute PE. - Echocardiogram 10/31/23: EF=60-65%. - Elevated CRP 34.59 and Procal 7.93, Leukocytosis at 18.85 on 10/31/23. -- Suggestive of inflammatory bacterial origin, most likely secondary to biliary sepsis. - Patient was already on Zosyn prior to this event. Continue Zosyn. - Given MRSA swab is negative and patient is already covered for Pseudomonas and some anaerobes with Zosyn, linezolid was discontinued. - Supplemental O2 demand decreasing, currently on 2 L NC. Goal to be weened off supplemental O2 completely. -- Patient reports one episode of productive cough with brown sputum. Specimen cup given to patient to use if he has another episode of sputum production. -- Continue incentive spirometry. - Scheduled metoprolol discontinued in the setting of low BPs. - Metoprolol tartrate 5 mg IV as needed for HR> 120, SBP> 185, DBP> 95. - Continue telemonitoring. - Patient went back into A fib around 16:30 on 11/01/23 with HR in 150s, asymptomatic. -- Started Diltiazem bolus with drip - continue through the night. Can transition to scheduled metoprolol tomorrow. -- Troponin elevated at 79.3, likely secondary to demand ischemia. Repeat trop ordered for 21:00. -- 12 lead EKG, no ST depression or elevation - Nocturnal pulse oximetry study ordered for tonight due to concern of decreased O2 sats while sleeping. (3) HTN (hypertension): Plan: - Patient took metoprolol the morning of 10/28 - Scheduled metoprolol discontinued and PRN ordered with parameters as noted above. - Continue to hold amlodipine until patient is able to take p.o. meds Plan Updated at bedside, discussed results of echo Reviewed tele monitoring and SpO2. Titrate down O2 until no longer needed. Converted pantoprazole and Tylenol to PO Resumed aspirin Ordered nocturnal pulse oximetry study Ordered diltiazem bolus and drip, checked troponin, reviewed EKGs CODE STATUS: Full code VTE PPx: SCDs (hold chemical DVT PPx due to surgery) Admission and Anticipated Discharge Date Admission Date: October 29, 2023 Subjective Patient seen and evaluated and bedside with . He reports that he is feeling better today. He states that he slept well, has a good appetite, and is passing gas. He has not had a bowel movement yet. Patient has been titrated down on supplemental O2. He is at 2L O2 via NC at the time of my evaluation. Goal is to be weened off supplemental O2 today. I reviewed how to use the incentive spirometer with the patient and his and encouraged him to use it hourly. Patient reports he had one episode of productive cough with brown phlegm production. He denies consistent coughing, shortness of breath, difficulty breathing. I discussed the results of his echocardiogram, which was normal. Patient denies any complaints at this time. In the afternoon, patient weened off supplemental O2 completely and remained stable on RA while awake. Around 16:30 patient went into A fib with RVR again with HR in 150s. Physical Exam Physical Exam: General: No acute distress, nondiaphoretic, well-developed, well-nourished. Skin: The skin was without rashes, erythema, edema, or bruising. Cardiac: Regular rate and rhythm without murmurs gallops or rubs. Pulm: No acute distress. Clear to auscultation bilaterally without wheezes, rales or rhonchi. Supplemental O2 at 2 L NC. Abdominal: Post-op dressing clean, dry, intact. Drain in place. Minimal tender ness to palpation of RUQ. Positive bowel sounds x 4. Soft, nondistended without masses or organomegaly. No guarding or rebound tenderness. Neuro: A&O x3. No focal neurological deficits. Results & Data Results & Data Vital Signs (Past 12 Hours) Vital Signs Temp Pulse Resp BP BP Pulse Ox O2 Del Method 11/01/23 10:57 Nasal Cannula 11/01/23 10:50 36.5 C 85 93 H 133/84 93 Nasal Cannula 11/01/23 08:00 36.6 C 79 23 159/99 H 92 Nasal Cannula 11/01/23 03:30 36.4 C L 76 22 142/75 H 92 Oxymask 10/31/23 23:18 36.4 C L 82 20 135/73 91 High Flow Nasal Cannula O2 Flow Rate 11/01/23 10:57 2 11/01/23 10:50 11/01/23 08:00 3.5 11/01/23 03:30 7 10/31/23 23:18 4 Laboratory Results Reviewed CBC Reviewed CMP Diagnostic Findings Reviewed echocardiogram 10/31/2023 Interpretation summary: Left ventricular systolic function is normal. There is mild concentric left ventricular hypertrophy. Right ventricular systolic pressure is elevated at 40 to 50 mmHg. Mild aortic root dilation. Left ventricular ejection fraction= 60-65%. PG Care Time/CCT Total # of Minutes Spent Total Time Spent with Patient: Total time spent is greater than 50% in coordination of care (as documented) at patient's floor/unit and/or counseling patient: Coding Level of Care Code 42060 SUB INP/OBS CARE 3/50MIN Diagnoses Acute cholecystitis K81.0 Acute hypoxic respiratory failure J96.01 HTN (hypertension) I10
[2023-11-01] MEDS: ASPIRIN 81 MG ECTAB PO SCH (11:51)
[2023-11-01] MEDS: PANTOprazole 40 MG TAB PO SCH (12:11)
[2023-11-01] MEDS: ACETAMINOPHEN 325 MG TAB PO SCH (14:49)
[2023-11-01] MEDS ORDERED: STAT IV Infusion **Titration per Protocol STA (16:48)
[2023-11-01] MEDS: dilTIAZem HCl 5 MG/ML 5 ML VIAL IV STA (17:00)
[2023-11-01] MEDS: dilTIAZem HCL 125 MG in DEXTROSE 5% 100 ML IV SCH (17:08)
[2023-11-02 06:00] LABS: Hematocrit (blood only) 35.2 % (42.0-52.0); Hemoglobin 11.9 g/dl (14.0-18.0); Mean Corpuscular Hemoglobin 28.1 pg (25.0-34.0); Mean Corpuscular Hgb Conc 33.8 g/dL (32.0-36.0); Mean Platelet Volume 9.6 fL (9.4-12.4); Platelet Count 199 K/uL (130-400); RDW Coefficient of Variation 13.2 % (11.5-14.5); RDW Standard Deviation 39.8 fL (36.4-46.3); Red Blood Count 4.24 M/uL (4.70-6.10); White Blood Count 11.58 K/ul (4.8-10.8)
[2023-11-02 06:22] LABS: Albumin Globulin Ratio 1.2 (0.9-2); Albumin Level 2.9 gm/dl (3.4-5.0); BUN Creatinine Ratio 15.1 (10-20); Calcium 8.3 mg/dl (8.6-10.3); Creatinine Clr Calc Pharmacy 39.9 ml/min; Est GFR (African American) 49.1 ml/min; Est GFR (Non-African American) 42.4 ml/min; Globulin 2.5 gm/dl (2.5-4.0); Potassium 3.6 mmol/L (3.5-5.1); Total Protein 5.4 gm/dl (6.0-8.3)
--- NOTE | 2023-11-02 08:18 | Surgery Progress Note ---
Date of Service November 02, 2023 Assessment & Plan (1) Acute cholecystitis: Plan: POD [address] Manzanares Doing well, VSS Keep CONNIE drain will remove in the office at O/p visit WBC downtrending 11 (15) D/C on PO antibiotics Stable for d/c from a gen surg standpoint, General surgery will sign off call with questions / concerns Admission and Anticipated Discharge Date Admission Date: October 29, 2023 Supervising Physician Co-Signing Physician Notes I personally saw and evaluated the patient with Emily YUEN and agree with the assessment and plan. 83-year-old male postoperative day 3 laparoscopic cholecystectomy for gangrenous cholecystitis Tolerating diet, passing flatus Pain is controlled Keep drain in place, will be discharged with this O2 requirements are decreasing F/u with Dr. Manzanares later this week versus early next week Surgery will sign off at this time, please call with any questions or concerns Subjective patient reports doing well Still not much of an appetite however tolerating what he does eat without N/V Review of Systems Constitutional: no fever and no chills Cardiovascular: no chest pain Gastrointestinal: no abdominal pain, no nausea and no vomiting Physical Exam Physical Exam: alert oriented Constitutional: cooperative and comfortable; no acute distress Gastrointestinal (Abdomen): Inspection/Auscultation: + abdominal surgical incision (dermabond to port sites no s/s infection noted ) and + abdominal surgical drain present (CONNIE drain, serosanguinous fluid ); abdomen not distended Percussion/Palpation: abdomen soft Results & Data Vital Signs (Past 12 Hours) Vital Signs Temp Pulse Pulse Pulse Resp BP Pulse Ox 11/02/23 07:26 98.2 F 69 22 128/83 96 11/02/23 07:26 76 11/02/23 05:21 72 11/02/23 03:18 98.2 F 74 20 143/82 H 97 11/02/23 02:38 72 11/02/23 00:04 120 H 11/01/23 23:29 98.1 F 97 H 17 132/83 92 11/01/23 23:02 73 11/01/23 23:01 90 11/01/23 22:22 74 11/01/23 21:57 74 11/01/23 21:12 11/01/23 21:00 Pulse Ox Pulse Ox O2 Del Method O2 Del Method O2 Del Method O2 Flow Rate O2 Flow Rate 11/02/23 07:26 Nasal Cannula 11/02/23 07:26 11/02/23 05:21 94 Nasal Cannula 11/02/23 03:18 High Flow Nasal Cannula 3 11/02/23 02:38 94 Nasal Cannula 11/02/23 00:04 11/01/23 23:29 High Flow Nasal Cannula 2 11/01/23 23:02 87 L Room Air 11/01/23 23:01 High Flow Nasal Cannula 2 11/01/23 22:22 91 Room Air 11/01/23 21:57 11/01/23 21:12 High Flow Nasal Cannula 3 11/01/23 21:00 95 High Flow Nasal Cannula 3 O2 Flow Rate 11/02/23 07:26 11/02/23 07:26 11/02/23 05:21 2 11/02/23 03:18 11/02/23 02:38 2 11/02/23 00:04 11/01/23 23:29 11/01/23 23:02 2 11/01/23 23:01 11/01/23 22:22 11/01/23 21:57 11/01/23 21:12 11/01/23 21:00 PG Care Time/CCT Total # of Minutes Spent Total Time Spent with Patient: Total time spent is greater than 50% in coordination of care (as documented) at patient's floor/unit and/or counseling patient: Coding Level of Care Code 91566 Post Operative Follow-Up Diagnoses Acute cholecystitis K81.0
--- NOTE | 2023-11-02 08:29 | Electrocardiogram Report ---
Test Reason : Blood Pressure : / mmHG Vent. Rate : 094 BPM Atrial Rate : 094 BPM P-R Int : 176 ms QRS Dur : 094 ms QT Int : 382 ms P-R-T Axes : 052 003 001 degrees QTc Int : 477 ms Normal sinus rhythm Incomplete right bundle branch block Abnormal ECG When compared with ECG of 31-OCT-2023 00:49, Sinus rhythm has replaced Atrial fibrillation Vent. rate has decreased BY 56 BPM Nonspecific T wave abnormality no longer evident in Lateral leads Confirmed by Sharan Lr ([id number]) on 11/02/2023 8:29:30 AM Referred By: REFERRED SELF Confirmed By:Jean-Claude Lr
--- NOTE | 2023-11-02 08:33 | Electrocardiogram Report ---
Test Reason : Blood Pressure : / mmHG Vent. Rate : 152 BPM Atrial Rate : 156 BPM P-R Int : 000 ms QRS Dur : 090 ms QT Int : 298 ms P-R-T Axes : 000 012 -32 degrees QTc Int : 473 ms Atrial fibrillation with rapid ventricular response Nonspecific ST and T wave abnormality Abnormal ECG When compared with ECG of 01-NOV-2023 16:35, (unconfirmed) Atrial fibrillation has replaced Sinus rhythm Vent. rate has increased BY 58 BPM Confirmed by Sharan Lr ([id number]) on 11/02/2023 8:32:48 AM Referred By: REFERRED SELF Confirmed By:Jean-Claude Lr
[2023-11-02] MEDS: METOPROLOL SUCC 25MG EXT REL TAB PO SCH (08:48)
--- NOTE | 2023-11-02 09:55 | Hospitalist Progress Note ---
Date of Service November 02, 2023 Assessment & Plan (1) Acute cholecystitis: Plan: - Patient presented with generalized weakness, nausea, and vomiting that began on 10/27/2023 - On admission, leukocytosis of 23.68 with neutrophil predominance, elevated total bili at 1.7 - CT A/P revealed findings consistent with acute cholecystitis - Zosyn 4.5 g IV q8h - last dose 11/02/2023 - Laparoscopic cholecystectomy on 10/30/[address] Manzanares -- Per the operative note, the gallbladder was gangrenous, severely inflamed, and perforated gallbladder. - WBC still elevated, but continues to downtrend -- Continue Zosyn. Possibly will require oral antibiotics upon discharge. - Advanced diet to low fiber/heart healthy 10/31/23. Well-tolerated. Zofran as needed for nausea and vomiting Acetaminophen 650 mg PO Q4H for mild pain or fever Oxycodone 5 mg for moderate pain, 10 mg for severe pain (2) New onset a-fib: Plan: - Patient had new onset A-fib with RVR in the early hours of 10/31/2023. -- Converted back to NSR after Lopressor, NSS bolus and digoxin. -- Repleted albumin and electrolytes. - There may have been a preceding aspiration event. -- CXR revealed no acute abnormalities and no evidence of pneumonia. -- CT PE revealed bilateral lower lobe consolidations and small pleural effusions, and trace perihepatic fluid along with foci of free air which is likely related to postoperative drain in the right subhepatic region. No acute PE. - Echocardiogram 10/31/23: EF=60-65%. - Patient went back into A fib around 16:30 on 11/01/23 with HR in 150s, asymptomatic. -- Started Diltiazem bolus with drip continued through the night. -- Troponin elevated at 79.3, repeat troponin 68.6, likely secondary to demand ischemia. -- 12 lead EKG, no ST depression or elevation - Patient converted to NSR at 03:00 on 11/02/2023. -- Stopped diltiazem drip AM 11/01. -- Started metoprolol succinate 25 mg PO daily and Eliquis 2.5 mg BID (renal dosing) 11/01. -- Patient will need anticoagulation for at least 30 days, then can follow-up with cardiology to determine if anticoagulation should be continued at that point. - Metoprolol tartrate 5 mg IV as needed for HR> 120, SBP> 185, DBP> 95. - Continue telemonitoring. (3) Acute hypoxic respiratory failure: Plan: - New onset supplemental O2 requirement 10/30/23, with increased O2 requirements 10/31/23. - Elevated CRP 34.59 and Procal 7.93, Leukocytosis at 18.85 on 10/31/23. -- Suggestive of inflammatory bacterial origin, most likely secondary to biliary sepsis. - Patient was already on Zosyn prior to this event. Continue Zosyn. - Given MRSA swab is negative and patient is already covered for Pseudomonas and some anaerobes with Zosyn, linezolid was discontinued. - Supplemental O2 demand decreased, and patient was weened off supplemental O2 completely 11/01/23. -- Patient reports one episode of productive cough with brown sputum. Sputum culture pending. -- Continue incentive spirometry. - Nocturnal pulse oximetry study revealed 1 desaturation event and 2 events of SpO2<88%. Patient will likely require supplemental oxygen at at night at 2 L. (4) HTN (hypertension): Plan: - Patient took metoprolol the morning of 10/28 - Continue to hold amlodipine for now - consider increasing metoprolol dose and discontinuing amlodipine on discharge. Plan Updated at bedside Stopped diltiazem drip Started metoprolol and Ludmila Reviewed tele monitoring and SpO2 CODE STATUS: Full code VTE PPx: SCDs (hold chemical DVT PPx due to surgery) Admission and Anticipated Discharge Date Admission Date: October 29, 2023 Subjective Patient seen and evaluated at bedside with . He converted back to NSR around 3 AM this morning and has remained in NSR since. He reports that he is feeling well today he still does not have much of a diet, but is tolerating what he does eat well without nausea or vomiting. He continues to pass gas, but still has not had a bowel movement yet. Reports that he has been consistently using his incentive spirometer. He reports minimal coughing. He is not on any supplemental oxygen at the time of my assessment. We discussed the results of his nocturnal pulse oximetry study and the plan in regards to his A-fib moving forward. Patient has no complaints at this time. Physical Exam Physical Exam: General: No acute distress, nondiaphoretic, well-developed, well-nourished. Skin: The skin was without rashes, erythema, edema, or bruising. Cardiac: Regular rate and rhythm without murmurs gallops or rubs. Pulm: No acute distress. Clear to auscultation bilaterally without wheezes, rales or rhonchi. Stable on room air. Abdominal: Post-op dressing clean, dry, intact. Drain in place. Minimal tenderness to palpation of RUQ. Positive bowel sounds x 4. Soft, nondistended without masses or organomegaly. No guarding or rebound tenderness. Neuro: A&O x3. No focal neurological deficits. Results & Data Results & Data Vital Signs (Past 12 Hours) Vital Signs Temp Pulse Pulse Pulse Resp BP Pulse Ox 11/02/23 09:19 11/02/23 07:26 36.8 C 69 22 128/83 96 11/02/23 07:26 76 11/02/23 05:21 72 11/02/23 03:18 36.8 C 74 20 143/82 H 97 11/02/23 02:38 72 11/02/23 00:04 120 H 11/01/23 23:29 36.7 C 97 H 17 132/83 92 11/01/23 23:02 73 11/01/23 23:01 90 11/01/23 22:22 74 11/01/23 21:57 74 Pulse Ox O2 Del Method O2 Del Method O2 Flow Rate O2 Flow Rate 11/02/23 09:19 High Flow Nasal Cannula 1 11/02/23 07:26 Nasal Cannula 11/02/23 07:26 11/02/23 05:21 94 Nasal Cannula 2 11/02/23 03:18 High Flow Nasal Cannula 3 11/02/23 02:38 94 Nasal Cannula 2 11/02/23 00:04 11/01/23 23:29 High Flow Nasal Cannula 2 11/01/23 23:02 87 L Room Air 2 11/01/23 23:01 High Flow Nasal Cannula 2 11/01/23 22:22 91 Room Air 11/01/23 21:57 Laboratory Results Reviewed CBC Reviewed CMP Reviewed repeat troponin Diagnostic Findings Reviewed nocturnal pulse oximetry study PG Care Time/CCT Total # of Minutes Spent Total Time Spent with Patient: Total time spent is greater than 50% in coordination of care (as documented) at patient's floor/unit and/or counseling patient: Coding Level of Care Code 23411 SUB INP/OBS CARE 50MIN Diagnoses Acute cholecystitis K81.0 New onset a-fib I48.91 Acute hypoxic respiratory failure J96.01 HTN (hypertension) I10
[2023-11-02] MEDS: APIXABAN 2.5 MG TAB PO SCH (10:13)
[2023-11-03] MEDS: METOPROLOL TARTRATE 1 MG/ML VIAL IV PRN (05:08)
[2023-11-03 06:07] LABS: Hematocrit (blood only) 38.8 % (42.0-52.0); Hemoglobin 13.1 g/dl (14.0-18.0); Mean Corpuscular Hemoglobin 27.7 pg (25.0-34.0); Mean Corpuscular Hgb Conc 33.8 g/dL (32.0-36.0); Mean Platelet Volume 9.2 fL (9.4-12.4); Platelet Count 205 K/uL (130-400); RDW Coefficient of Variation 12.6 % (11.5-14.5); RDW Standard Deviation 38.1 fL (36.4-46.3); Red Blood Count 4.73 M/uL (4.70-6.10); White Blood Count 12.41 K/ul (4.8-10.8)
[2023-11-03 06:45] LABS: Albumin Globulin Ratio 1.1 (0.9-2); Albumin Level 3.2 gm/dl (3.4-5.0); BUN Creatinine Ratio 14.7 (10-20); Bilirubin,Total 1.1 mg/dl (0.2-1.0); Calcium 8.7 mg/dl (8.6-10.3); Creatinine Clr Calc Pharmacy 39.2 ml/min; Est GFR (African American) 52.9 ml/min; Est GFR (Non-African American) 45.6 ml/min; Globulin 2.9 gm/dl (2.5-4.0); Magnesium 1.9 mg/dl (1.7-2.4); Potassium 3.6 mmol/L (3.5-5.1); Total Protein 6.1 gm/dl (6.0-8.3)
[2023-11-03] MEDS: METOPROLOL SUCC 50MG EXT REL TAB PO SCH (07:46)
--- NOTE | 2023-11-03 16:50 | Hospitalist Progress Note ---
Date of Service November 03, 2023 Assessment & Plan (1) Acute cholecystitis: Plan: - Patient presented with generalized weakness, nausea, and vomiting that began on 10/27/2023 - On admission, leukocytosis of 23.68 with neutrophil predominance, elevated total bili at 1.7 - CT A/P revealed findings consistent with acute cholecystitis - Zosyn 4.5 g IV q8h - last dose 11/02/2023 - Laparoscopic cholecystectomy on 10/30/[address] Manzanares -- Per the operative note, the gallbladder was gangrenous, severely inflamed, and perforated gallbladder. - WBC still elevated, but continues to downtrend -- Continue Zosyn. Possibly will require oral antibiotics upon discharge. - Advanced diet to low fiber/heart healthy 10/31/23. Well-tolerated. Zofran as needed for nausea and vomiting Acetaminophen 650 mg PO Q4H for mild pain or fever Oxycodone 5 mg for moderate pain, 10 mg for severe pain (2) New onset a-fib: Plan: - Patient had new onset A-fib with RVR in the early hours of 10/31/2023. -- Converted back to NSR after Lopressor, NSS bolus and digoxin. -- Repleted albumin and electrolytes. - There may have been a preceding aspiration event. -- CXR revealed no acute abnormalities and no evidence of pneumonia. -- CT PE revealed bilateral lower lobe consolidations and small pleural effusions, and trace perihepatic fluid along with foci of free air which is likely related to postoperative drain in the right subhepatic region. No acute PE. - Echocardiogram 10/31/23: EF=60-65%. - Patient went back into A fib around 16:30 on 11/01/23 with HR in 150s, asymptomatic. -- Started Diltiazem bolus with drip continued through the night. -- Troponin elevated at 79.3, repeat troponin 68.6, likely secondary to demand ischemia. -- 12 lead EKG, no ST depression or elevation. - Patient converted to NSR at 03:00 on 11/02/2023. - Continue metoprolol succinate 50 mg PO daily and Eliquis 5 mg BID. - Patient will need anticoagulation for at least 30 days, then can follow-up with cardiology to determine if anticoagulation should be continued at that point. - I was going to discharge the patient 11/03/2023, however he refused due to concern of hypotension because his metoprolol dosage was increased during this hospitalization - wants continued BP monitoring overnight. -- Cardiology consult placed - patient and had questions and concerns about A fib and BP. I addressed all questions and concerns but they would still like to see cardio. - Renal artery ultrasound ordered - pending. - Metoprolol tartrate 5 mg IV as needed for HR> 120, SBP> 185, DBP> 95. - Continue telemonitoring. (3) Acute hypoxic respiratory failure: Plan: - New onset supplemental O2 requirement 10/30/23, with increased O2 requirements 10/31/23. - Elevated CRP 34.59 and Procal 7.93, Leukocytosis at 18.85 on 10/31/23. -- Suggestive of inflammatory bacterial origin, most likely secondary to biliary sepsis. - Patient was already on Zosyn prior to this event. Continue Zosyn. - Given MRSA swab is negative and patient is already covered for Pseudomonas and some anaerobes with Zosyn, linezolid was discontinued. - Supplemental O2 demand decreased, and patient was weened off supplemental O2 completely 11/01/23. -- Patient reports one episode of productive cough with brown sputum. Sputum culture revealed Abeba albicans normal ethel, no treatment needed. -- Continue incentive spirometry. - Nocturnal pulse oximetry study revealed 1 desaturation event and 2 events of SpO2<88%. Patient does not require supplemental oxygen at at night. (4) HTN (hypertension): Plan: - Patient took metoprolol the morning of 10/28 - Continue to hold amlodipine for now Hypertension management as noted above Plan Updated at bedside Ordered renal artery ultrasound Consulted cardiology Increased metoprolol to 50 mg daily CODE STATUS: Full code VTE PPx: SCDs (hold chemical DVT PPx due to surgery) Admission and Anticipated Discharge Date Admission Date: October 29, 2023 Subjective Patient seen and evaluated at bedside with . He did have a bowel movement today. His blood pressures remain significantly elevated, however, with increased dosage of medication his BP returned to normal. He has no complaints. Patient is going to be discharged home today, however him and his have concerns about hypotension given his increased dose of metoprolol and want to stay the night to monitor his blood pressure. If patient remains stable overnight, he can be discharged home tomorrow. Physical Exam Physical Exam: General: No acute distress, nondiaphoretic, well-developed, well-nourished. Skin: The skin was without rashes, erythema, edema, or bruising. Cardiac: Regular rate and rhythm without murmurs gallops or rubs. Pulm: No acute distress. Clear to auscultation bilaterally without wheezes, rales or rhonchi. Stable on room air. Abdominal: Post-op dressing clean, dry, intact. Drain in place. Minimal tenderness to palpation of RUQ. Positive bowel sounds x 4. Soft, nondistended without masses or organomegaly. No guarding or rebound tenderness. Neuro: A&O x3. No focal neurological deficits. Results & Data Results & Data Vital Signs (Past 12 Hours) Vital Signs Temp Pulse Pulse Resp BP BP BP 11/03/23 16:28 81 136/101 H 11/03/23 16:14 82 177/114 H 11/03/23 16:00 84 25 H 177/114 H 11/03/23 15:38 84 21 154/112 H 11/03/23 15:00 78 11/03/23 14:40 37.3 C 82 22 132/95 11/03/23 11:50 86 144/98 H 11/03/23 10:52 36.1 C L 91 H 20 141/101 H 11/03/23 10:00 81 22 142/98 H 11/03/23 09:00 78 20 152/97 H 11/03/23 08:00 76 11/03/23 08:00 11/03/23 08:00 92 H 15 135/101 H 11/03/23 07:00 36.6 C 84 23 167/111 H 11/03/23 05:29 86 175/113 H 11/03/23 05:08 90 178/100 H Pulse Ox O2 Del Method 11/03/23 16:28 11/03/23 16:14 11/03/23 16:00 95 Room Air 11/03/23 15:38 95 Room Air 11/03/23 15:00 11/03/23 14:40 93 Room Air 11/03/23 11:50 11/03/23 10:52 97 Room Air 11/03/23 10:00 97 Room Air 11/03/23 09:00 92 Room Air 11/03/23 08:00 11/03/23 08:00 Room Air 11/03/23 08:00 100 Room Air 11/03/23 07:00 94 Room Air 11/03/23 05:29 11/03/23 05:08 Laboratory Results Reviewed CBC Reviewed CMP Reviewed sputum culture PG Care Time/CCT Total # of Minutes Spent Total Time Spent with Patient: Total time spent is greater than 50% in coordination of care (as documented) at patient's floor/unit and/or counseling patient: Coding Level of Care Code 48206 SUB INP/OBS CARE 3/50MIN Diagnoses Acute cholecystitis K81.0 New onset a-fib I48.91 Acute hypoxic respiratory failure J96.01 HTN (hypertension) I10
--- NOTE | 2023-11-03 17:18 | Cardiology Consultation ---
Date of Consultation November 03, 2023 Assessment & Plan (1) New onset a-fib: (2) Aortic root dilation: Plan 1. Atrial fibrillation: Paroxysmal. No associated symptoms. Unclear if this is related to his surgery, but he does have apparent high blood pressure, some mild LVH and is advanced in age. I suspect he will have more atrial fibrillation although hopefully the episodes will be infrequent and brief. I would agree with doubling the metoprolol in order to improve rate control. Dose may need to be increased in the future if we continue to see high rates. He was started on systemic anticoagulation. Dosing is difficult given his tenuous renal function. It seems his creatinine hovers close to 1.5. Persistently elevated creatinine would necessitate a reduced dose apixaban 2.5 mg twice daily. At the stay on the 5 mg dose currently. Given the absence of symptoms associated with atrial fibrillation I think efforts should be made primarily at rate control. Mention monitoring the heart rate at home to the patient and his . They will by some monitoring equip ment. For frequent episodes of atrial fibrillation under extended in duration with high heart rates will need to intensify medical therapy. I think we can monitor this in the outpatient setting. 2. Aortic root dilation: Very mild. This can be re-evaluated again in another year or 2. Unlikely to be a clinical concern in the course of his lifetime. History of Present Illness Reason for Consultation: Atrial fibrillation Requesting Physician: Nadia Attending Physician: Jimmy Park MD History of Present Illness The patient is an 83-year-old gentleman without a known history of cardiac disease presented to the hospital with symptoms of abdominal discomfort. He was discovered to have acute cholecystitis in on the 29 of October underwent a cholecystectomy. His postoperative course was complicated by the development of atrial fibrillation. Patient appears to have had to self-limited episodes of atrial fibrillation. Both involved a elevated ventricular rate. The patient was unaware of any palpitations or high heart rates. Prior to his hospitalization the patient reported being fairly sedentary. Activity is limited primarily by advanced age and leg weakness. He is able to ambulate and go up stairs, but he does this quite slowly. He did not report any limiting dyspnea. He has not any symptoms of chest discomfort at rest or with activity. He has been unaware of any palpitations at home. He does have a blood pressure cuff at home but uses infrequently. He has not been aware of any high heart rates. He denies dizziness or lightheadedness. No history of syncope. Currently he is feeling better. According to his who was present for today's interview he did ambulate around the [place] today. He felt somewhat fatigued and was noted to have elevated blood pressure. He felt that staying overnight would be a good option and was anxious to be discharged tomorrow. Allergies Allergy/AdvReac Type Severity Reaction Status Date / Time lisinopril AdvReac Mild Cough Verified 09/14/23 13:22 Home Medications Medication Instructions Recorded Confirmed Type aspirin 81 mg tablet,delayed 81 mg PO DAILY ##0 10/05/17 10/29/23 History release (Willie Low Dose Aspirin) vitamin E 268 mg (400 unit) capsule 400 unit PO DAILY ##0 10/05/17 10/29/23 History cholecalciferol (vitamin D3) 125 1,000 unit PO DAILY #0 tabs 10/15/21 10/29/23 History mcg (5,000 unit) tablet pantoprazole 20 mg tablet,delayed 20 mg PO DAILY PRN Heartburn #90 11/18/22 10/29/23 Rx release tabs latanoprost 0.005 % eye drops 1 drp ophthalmic (eye) DAILY 02/04/23 10/29/23 History red yeast rice 600 mg tablet 600 mg PO .QOD 02/04/23 10/29/23 History travoprost 0.004 % eye drops 1 drp OPB PM #1 btl 02/04/23 10/29/23 History (Travatan Z) metoprolol succinate 25 mg 25 mg PO DAILY #90 tabs 04/21/23 10/29/23 Rx tablet,extended release 24 hr vit C 250 mg-E 90 mg-zinc 40 1 tab PO BID 09/14/23 10/29/23 History mg-copper 1 [id number]-[id number]-gqerrx chew tablet (PreserVision AREDS-2) amlodipine 2.5 mg tablet 2.5 mg PO HS 10/29/23 10/29/23 History amoxicillin 875 mg-potassium 1 tab PO Q12H infection 10 days 10/30/23 Rx clavulanate 125 mg tablet #20 tabs amoxicillin 875 mg-potassium 1 tab PO Q12H infection 10 days 10/30/23 Rx clavulanate 125 mg tablet #20 tabs Patient History Surgical History (Updated 11/02/23 @ 13:51 by Soo Prasad RN) Hx laparoscopic cholecystectomy (10/30/23) Laparoscopic Cholecystectomy with cholangiogram(Not Applicable) - Nav Manzanares DO, FACS History of eye surgery No pertinent past surgical history Family History Father FHx: heart disease Mother Colorectal cancer Congestive heart failure due to hypertension Other FHx: cancer FHx: hypertension Denies family history of Ovarian cancer Prostate cancer Breast cancer Lung cancer Social History Smoking Status: Never smoker Second Hand Exposure: No; Do You Dip or Chew Tobacco: No; Hx Alcohol Use: No Hx Substance Use: No Preferred Language: Urdu Communication Ability: Effective Visual Impairment: Limited Hearing Ability: Normal Excel Expert Required: No Beliefs That Will Affect Care: None marital status: Current Living Situation: Spouse and Family current occupational status: employed and retired Feels Safe at Home: Yes Childhood Exposure to Second-Hand Smoke: Yes Diet: regular caffeine: Yes (soda) Dental Care, Regularly: Yes Physical Activity Frequency: Does not Exercise Seatbelt Use: always Sunscreen Use: No Do you think of yourself as: straight/heterosexual Assistive Devices: None Review of Systems Review of Systems: Per HPI. Some mild tenderness in the right upper quadrant area. Tolerating diet with with some element of anorexia. He reports sleeping well. He gets up every 2 hours some time to urinate. This is been is routine for some time. His states that he snores infrequently. Does report feeling tired during the day and takes naps frequently. Physical Exam Physical Exam: The patient is alert and oriented. Mood and affect appeared normal. He answered all questions appropriately. HEENT: Pupils are equal and reactive to light and accommodation. Extraocular movements are intact. The sclerae are anicteric. Neuro: Cranial nerves intact Lungs: Slightly reduced breath sounds in the right base. Normal breath sounds on the left. No rales. Good respiratory effort. Cardiac: Heart demonstrates a regular rate and rhythm. Normal S1 and S2. No murmurs on examination. Pulses: The patient has palpable radial pulses bilaterally that are equal in intensity Extremities: There was no evidence of hypoperfusion. There is no cyanosis or clubbing. There is no edema. Skin: I did not appreciate any rashes on examination today. Results & Data Vital Signs (Past 12 Hours) Vital Signs Temp Pulse Pulse Resp BP BP BP 11/03/23 16:28 81 136/101 H 11/03/23 16:14 82 177/114 H 11/03/23 16:00 84 25 H 177/114 H 11/03/23 15:38 84 21 154/112 H 11/03/23 15:00 78 11/03/23 14:40 37.3 C 82 22 132/95 11/03/23 11:50 86 144/98 H 11/03/23 10:52 36.1 C L 91 H 20 141/101 H 11/03/23 10:00 81 22 142/98 H 11/03/23 09:00 78 20 152/97 H 11/03/23 08:00 76 11/03/23 08:00 11/03/23 08:00 92 H 15 135/101 H 11/03/23 07:00 36.6 C 84 23 167/111 H 11/03/23 05:29 86 175/113 H Pulse Ox O2 Del Method 11/03/23 16:28 11/03/23 16:14 11/03/23 16:00 95 Room Air 11/03/23 15:38 95 Room Air 11/03/23 15:00 11/03/23 14:40 93 Room Air 11/03/23 11:50 11/03/23 10:52 97 Room Air 11/03/23 10:00 97 Room Air 11/03/23 09:00 92 Room Air 11/03/23 08:00 11/03/23 08:00 Room Air 11/03/23 08:00 100 Room Air 11/03/23 07:00 94 Room Air 11/03/23 05:29 Laboratory Results Abnormal Lab Results 11/03/23 11/03/23 05:46 05:47 WBC 12.41 H RBC 4.73 Hgb 13.1 L Hct 38.8 L MCV 82.0 MCH 27.7 MCHC 33.8 RDW Std Deviation 38.1 RDW Coeff of Peg 12.6 Plt Count 205 MPV 9.2 L Sodium 138 Potassium 3.6 Chloride 105 Carbon Dioxide 24 Anion Gap 9 BUN 21 Creatinine 1.43 H Est Cr Clr Drug Dosing 39.2 Est GFR ( Amer) 52.9 Est GFR (Non-Af Amer) 45.6 BUN/Creatinine Ratio 14.7 Glucose 102 H Calcium 8.7 Magnesium 1.9 Total Bilirubin 1.1 H AST 39 ALT 47 Alkaline Phosphatase 69 Total Protein 6.1 Albumin 3.2 L Globulin 2.9 Albumin/Globulin Ratio 1.1 Diagnostic Findings Echocardiogram performed 10/31/2023: Normal LV systolic function. Mild LVH. Mildly elevated right-sided pressures estimated at 40-50 mm of mercury. Mild aortic root dilation. PG Care Time/CCT Total # of Minutes Spent Total Time Spent with Patient: Total time spent is greater than 50% in coordination of care (as documented) at patient's floor/unit and/or counseling patient: Coding Level of Care Code 05778 INT INP/OBS CARE 375MIN Diagnoses New onset a-fib I48.91 Aortic root dilation I77.810
[2023-11-03] MEDS: APIXABAN 5 MG TABLET PO SCH (21:04)
[2023-11-04 06:13] LABS: Hematocrit (blood only) 39.5 % (42.0-52.0); Hemoglobin 13.5 g/dl (14.0-18.0); Mean Corpuscular Hemoglobin 28.2 pg (25.0-34.0); Mean Corpuscular Hgb Conc 34.2 g/dL (32.0-36.0); Mean Corpuscular Volume 82.5 fL (80.0-100.0); Mean Platelet Volume 9.1 fL (9.4-12.4); Platelet Count 252 K/uL (130-400); RDW Coefficient of Variation 13.1 % (11.5-14.5); RDW Standard Deviation 39.5 fL (36.4-46.3); Red Blood Count 4.79 M/uL (4.70-6.10); White Blood Count 12.38 K/ul (4.8-10.8)
[2023-11-04 06:26] LABS: Albumin Globulin Ratio 1.1 (0.9-2); Albumin Level 3.2 gm/dl (3.4-5.0); BUN Creatinine Ratio 15.5 (10-20); Bilirubin,Total 0.8 mg/dl (0.2-1.0); Calcium 8.8 mg/dl (8.6-10.3); Creatinine Clr Calc Pharmacy 43.4 ml/min; Est GFR (African American) 59.9 ml/min; Est GFR (Non-African American) 51.7 ml/min; Globulin 2.9 gm/dl (2.5-4.0); Potassium 3.6 mmol/L (3.5-5.1); Total Protein 6.1 gm/dl (6.0-8.3)
--- NOTE | 2023-11-04 17:29 | Discharge Summary ---
<Statement entered by Gayla Jiménez MD - 11/04/23 19:36> I saw Mr. Harrison day of discharge he is recovering well, RUQ pain controlled and tolerating low fiber diet well. Exam unremarkable - lungs CTAB heart reg no mrg, abd ND +BT, ruq tenderness without rrg, LE wwp no edema. Prescribed 10 days augmentin at discharge per general surgery Renal artery ultrasound resulted after discharge - no evidence of renal artery stenosis Agree with below documentation. Discharge Summary Date of Service November 04, 2023 Notes For Next Care Provider Follow-up with PCP 11/06/23 Follow-up with general surgery 11/13/2023 Follow-up with cardiology 12/23/2023 Medication Changes From Visit Increased metoprolol to 50 mg p.o. daily Started Eliquis 5 mg twice daily during this hospitalization Admission HPI Per Admitting Provider N[place] is an 83-year-old male with PMH of HTN, glaucoma, GERD, and CKD. He presented for generalized weakness, fever, chills, epigastric pain, nausea, and vomiting that began on Thursday 10/26. Patient believes he caught a stomach flu Thursday morning, and has been feeling sick since. He endorses severe epigastric pain that extends to the umbilicus. Rated 10/10 at worst. The pain was constant on Thursday, and lasted most of the day. No radiation to the back, chest, or legs. Patient reports that no matter how he laid, he could get rid of the pain. He took Tylenol yesterday as he was running a fever, and began to sweat profusely after that, and believes that broke his fever. Since then patient has been tolerating fluids, but rarely solids. Able to drink Pedialyte and water. The only real fluid he had since Thursday was some toast. Patient took his metoprolol this morning, but besides that has not had his medications for the past 2 days. Patient denies PMH of [place], DVT/PE, DM, or CHF. Last BM was on Thursday 10/26. He also took his BP at home and believes it was around 94/66 today. No sick contacts. Patient denies smoking, tobacco use, or alcohol use. At time of admission, patient is hypertensive at 147/95, and mildly tacky at 93 bpm; SpO2 98% on RA. ED course: Zofran 4 mg IV NSS 1000 mL IV Zosyn 4.5 g IV ROS: Patient endorses fever, chills, sweating, vomiting, decreased appetite, RUQ/epigastric pain, SOB during episodes of epigastric pain, and some constipation. Patient denies dizziness, lightheadedness, chest pain, chest palpitations, SOB at rest, cough, diarrhea, change in urinary habits, blood in urine or stool, or numbness/tingling in arms or legs. Admission Exam Per Admitting Provider General: Initially, patient was in no acute distress, but then developed acute onset of RUQ pain and began writhing in bed during exam; non-toxic appearing; cooperative; SpO2 98% on RA HEENT: normocephalic, atraumatic; no scleral icterus; PERRLA; moist mucus membrane; vision and hearing intact Neck: supple; no lymphadenopathy; trachea midline Skin: warm, dry without signs of tenting; no cyanosis; no rashes, bruising, lesions, or erythema noted on the abdomen or flanks CV: chest wall NTP; RRR; S1/S2 normal; no murmurs/rubs/gallops; pulses intact and symmetric at radial, DP, and PT Lungs: no acute respiratory distress; symmetrical chest wall expansion; clear breath sounds across all lung elliott w/o adventitious sounds; no wheezing ABD: Soft; RUQ TTP; BS present; no rebound/guarding; no distention MSK: no tics or fasciculations; no edema noted in the LEs b/l, nonerythematous Neuro: A&Ox3; normal mood and affect; fluent speech; no focal deficits; sensation intact in the LEs b/l Principal Dx & Hospital Course #1 = Principal Diagnosis (1) Acute cholecystitis: - Patient presented with generalized weakness, nausea, and vomiting that began on 10/27/2023 - On admission, leukocytosis of 23.68 with neutrophil predominance, elevated total bili at 1.7 - CT A/P revealed findings consistent with acute cholecystitis - Zosyn 4.5 g IV q8h - last dose 11/02/2023 - Laparoscopic cholecystectomy on 10/30/[address] Manzanares -- Per the operative note, the gallbladder was gangrenous, severely inflamed, and perforated gallbladder. - WBC still elevated, but continues to downtrend -- Continue Zosyn. Possibly will require oral antibiotics upon discharge. - Advanced diet to low fiber/heart healthy 10/31/23. Well-tolerated. - Drain removed 11/04/2023. - Patient is to follow-up with general surgery on 11/13/2023. (2) New onset a-fib: - Patient had new onset A-fib with RVR in the early hours of 10/31/2023. -- Converted back to NSR after Lopressor, NSS bolus and digoxin. -- Repleted albumin and electrolytes. - There may have been a preceding aspiration event. -- CXR revealed no acute abnormalities and no evidence of pneumonia. -- CT PE revealed bilateral lower lobe consolidations and small pleural effusions, and trace perihepatic fluid along with foci of free air which is likely related to postoperative drain in the right subhepatic region. No acute PE. - Echocardiogram 10/31/23: EF=60-65%. Mild concentric LVH and aortic root dilation. Left ventricular systolic function is normal. Right ventricular systolic pressure is elevated at 40-50 mmHg. - Patient went back into A fib around 16:30 on 11/01/23 with HR in 150s, asymptomatic. -- Diltiazem bolus with drip continued through the night. -- Troponin elevated at 79.3, repeat troponin 68.6, likely secondary to demand ischemia. -- 12 lead EKG, no ST depression or elevation. - Patient converted to NSR at 03:00 on 11/02/2023. - Renal artery ultrasound completed, however formal read is still pending. - Continue metoprolol succinate 50 mg PO daily and Eliquis 5 mg BID. - Patient will need anticoagulation for at least 30 days, then can follow-up with cardiology to determine if anticoagulation should be continued at that point. -- Cardiology follow-up scheduled for 12/23/23. (3) Acute hypoxic respiratory failure: - New onset supplemental O2 requirement 10/30/23, with increased O2 requirements 10/31/23. - Elevated CRP 34.59 and Procal 7.93, Leukocytosis at 18.85 on 10/31/23. -- Suggestive of inflammatory bacterial origin, most likely secondary to biliary sepsis. - Patient was already on Zosyn prior to this event. Continue Zosyn. - Given MRSA swab is negative and patient is already covered for Pseudomonas and some anaerobes with Zosyn, linezolid was discontinued. - Supplemental O2 demand decreased, and patient was weened off supplemental O2 completely 11/01/23. -- Patient reports one episode of productive cough with brown sputum. Sputum culture revealed Abeba albicans normal ethel, no treatment needed. -- Continue incentive spirometry. - Nocturnal pulse oximetry study revealed 1 desaturation event and 2 events of SpO2<88%. Patient does not require supplemental oxygen at at night. (4) HTN (hypertension): - Patient took metoprolol the morning of 10/28 - Continue amlodipine on discharge - PCP follow-up scheduled for 11/06/23 to check BP and review hospital course. Plan Continue to monitor blood pressures Continue to use rolling walker as needed for safe ambulation CODE STATUS: Full code Discharge Exam General: No acute distress, nondiaphoretic, well-developed, well-nourished. Skin: The skin was without rashes, erythema, edema, or bruising. Cardiac: Regular rate and rhythm without murmurs gallops or rubs. Pulm: No acute distress. Clear to auscultation bilaterally without wheezes, rales or rhonchi. Stable on room air. Abdominal: Post-op dressing clean, dry, intact. Drain in place. Minimal tenderness to palpation of RUQ. Positive bowel sounds x 4. Soft, nondistended without masses or organomegaly. No guarding or rebound tenderness. Neuro: A&O x3. No focal neurological deficits. Updated Medication List Medication Instructions Recorded Confirmed Type aspirin 81 mg tablet,delayed 81 mg PO DAILY ##0 10/05/17 10/29/23 History release (Willie Low Dose Aspirin) vitamin E 268 mg (400 unit) capsule 400 unit PO DAILY ##0 10/05/17 10/29/23 History cholecalciferol (vitamin D3) 125 1,000 unit PO DAILY #0 tabs 10/15/21 10/29/23 History mcg (5,000 unit) tablet pantoprazole 20 mg tablet,delayed 20 mg PO DAILY PRN Heartburn #90 11/18/22 10/29/23 Rx release tabs latanoprost 0.005 % eye drops 1 drp ophthalmic (eye) DAILY 02/04/23 10/29/23 History red yeast rice 600 mg tablet 600 mg PO .QOD 02/04/23 10/29/23 History travoprost 0.004 % eye drops 1 drp OPB PM #1 btl 02/04/23 10/29/23 History (Travatan Z) vit C 250 mg-E 90 mg-zinc 40 1 tab PO BID 09/14/23 10/29/23 History mg-copper 1 bc-qoirye-sufflq chew tablet (PreserVision AREDS-2) amlodipine 2.5 mg tablet 2.5 mg PO HS 10/29/23 10/29/23 History amoxicillin 875 mg-potassium 1 tab PO Q12H infection 10 days 10/30/23 Rx clavulanate 125 mg tablet #20 tabs amoxicillin 875 mg-potassium 1 tab PO Q12H infection 10 days 10/30/23 Rx clavulanate 125 mg tablet #20 tabs apixaban 5 mg tablet (Eliquis) 5 mg PO BID #60 tabs 11/04/23 Rx metoprolol succinate 50 mg 50 mg PO DAILY #60 tabs 11/04/23 Rx tablet,extended release 24 hr Hospital Stay Data Consultations 10/29/23 16:51 ED Decision to Admit Stat 10/29/23 21:09 Consult General Surgery Routine 11/03/23 16:19 Consult Cardiology Routine Procedures Performed Operation Date: 10/30/23 07:00 Actual Procedures p Laparoscopic Cholecystectomy with cholangiogram(Not Applicable) - Nav Manzanares DO, FACS Diagnostic Imagining Performed 10/29/23 15:21 CT Abd and Pelvis [CT abd pelvis IV con only] Stat 10/29/23 16:34 US gallbladder Stat 10/30/23 [place] cholangiogram OR Routine 10/31/23 02:16 CT angio chest PE protocol Urgent 11/04/23 US duplex renal artery Routine Pending Results Patient Have Any Pending Studies at Discharge: Yes Discharge Instructions Given to Patient (Per Discharging Provider) Mr. Harrison, You were admitted to the hospital due to cholecystitis (inflammation of the gallbladder). This is what caused your presenting symptoms of generalized weakness, nausea, and vomiting. You had a cholecystectomy, surgery to remove the gallbladder. During the surgery, your gallbladder was gangrenous, severely inflamed, and perforated. You were treated with IV antibiotics while in the hospital, and will be discharged on oral antibiotics. This is to prevent infection secondary to your perforated gallbladder. Your drain was removed prior to discharge. Postoperatively, you experienced new onset of atrial fibrillation with rapid ventricular response (A-fib with RVR). Atrial fibrillation is a condition in which the heart beats in an irregular pattern. It is the most common abnormal heart rhythm. It is caused by a problem in the heart electrical pathways within the muscle of the upper chambers of the heart (atria). Because the atria are not rio normally, blood may pool in the atria instead of moving into the ventricles (the lower chambers of the heart). This can increase the risk for blood clots and stroke. Heart palpitations are a common symptom of atrial fibrillation. This is the feeling that your heart is fluttering, or beating too fast, hard, or irregular. When the heart beats too fast, it does not pump blood very well. This can cause other symptoms, such as anxiety, fatigue, shortness of breath, chest pain, dizziness, or fainting. Additionally, you have had elevated blood pressures requiring an increased dosage of your medications while hospitalized. Your episodes of atrial fibrillation have appear to be self-limited. However, both have involved an elevated ventricular rate. It is important that we control both your heart rate and you are elevated blood pressure. Therefore, there have been some new medications added/changes to your home medication doses. Your prescriptions have been sent to the [facility] pharmacy in [place]. Upon discharge from the hospital: * Increase Metoprolol succinate to 50 mg by mouth once daily. This is a beta- emily that controls your heart rate and blood pressure. * Start Eliquis 5 mg by mouth twice daily. This is a blood thinner that reduces the risk of blood clots or stroke. You were given an Eliquis coupon card that should give you your first month prescription for free. * Take Augmentin (oral antibiotic) for 10 days. This is to prevent an infection from occurring postoperatively from your gallbladder surgery. * Continue your amlodipine 2.5 mg by mouth at bedtime. This is a calcium channel emily that helps control blood pressure. * Advance your diet as tolerated. You have been on a low fiber diet while in the hospital. * Follow-up with your primary care provider (PCP). You have an appointment with your PCP scheduled for 11/06/2023 at 2:45 PM. Your blood pressure and heart rate will be assessed at this time. * Follow-up with cardiology outpatient. You have an appointment with cardiology scheduled for 12/23/2023 at 2:00 PM. * Follow-up with general surgery outpatient. You have an appointment with general surgery scheduled for 11/13/2023 9:15 AM. Please call your healthcare provider if you have any of these: Severe pain near your operative site, swelling in either leg, feeling lightheaded, faint, or dizzy. Please return to the hospital if any of these occur: Shortness of breath or trouble breathing, passing out, uncontrolled bleeding, heartbeat that is irregular/very fast or slow compared with your normal heartbeat, chest pain or pressure, extreme drowsiness or confusion, numbness or weakness in your arms, legs, or face, or trouble speaking or seeing. It was a pleasure taking care of you while you were in the hospital, Gayla Zuniga PA-C Total Time Total Time Spent Total Time Spent (In Minutes): Greater than 30 minutes spent completing this discharge process including direct patient care, medication reconciliation, documentation, review of labs and images, and coordination of care. Coding Level of Care Code 54882 INP/OBS DISCH >30 MIN Diagnoses Acute cholecystitis K81.0 New onset a-fib I48.91 Acute hypoxic respiratory failure J96.01 HTN (hypertension) I10
--- NOTE | 2023-11-04 19:30 | Ultrasound Report ---
US duplex renal artery CLINICAL HISTORY: Refractory hypertension TECHNIQUE: Real-time grayscale and color and spectral Doppler ultrasound imaging of the kidneys was p erformed. Comparison: None available at the time of this dictation. FINDINGS: Right kidney measures 9.5 cm. Left kidney measures 9.8 cm. RIGHT: The right kidney is normal in size, contour, cortical thickness, and echogenicity. No hydronephrosis is identified. No renal lesion is identified. Spectral analysis: Intrarenal resistive indices measure up to 0.58. Waveforms are normal in appearance.. Renal artery ve locities and waveforms are normal. Renal vein patent. LEFT: The left kidney is normal in size, contour, cortical thickness and echogenicity. No hydronephrosis i s identified. No renal lesion is identified. Spectral analysis: Intrarenal resistive indices measure up to 0.61. Waveforms are normal in appearance. Renal artery darile ocities and waveforms are normal. Renal vein patent. Abdominal aorta: Patent. Peak systolic velocity 66 cm/s. Bladder: Underdistended limiting evaluation but grossly normal. Reference ranges: Normal main renal artery peak systolic velocity less than 180 cm/s. Ratio of renal artery PSV to aort ic PSV less than 3.5 equates to normal or less than 60% stenosis. Only one of the two criteria listed needs to be met for diagnosis. Arcuate resistive indices about 0.8 are elevated. IMPRESSION: No evidence of renal artery stenosis. ACT 112: Negative or not required by law. Electronically signed by: Mohit Posada M.D. 11/04/2023 7:29 PM
--- NOTE | 2023-11-05 12:28 | Coding Query ---
SEPSIS To promote full compliance with coding requirements relating to patient care, physician participation is requested in all cases of robot programmer uncertainty. Please assist us with the question(s) below: In responding to this query, please exercise your independent professional judgement. The fact that a question is asked does not imply that any particular answer is desired or expected. We appreciate your clarification on this issue. Throughout the medical record, you have clearly documented a localized infection and your patient has clinical evidence of a generalized sepsis or severe sepsis. If the patient has sepsis, severe sepsis, from an urinary source or some other source, please clarify in your response below. The medical record reflects the following clinical findings: ED Note: * Temp - 36.1 C * Pulse - 106 * Respirations - 16 * WBC count - 23.68 * Anion Gap - 10 * Acute cholecystitis * Treated with Zosyn 4.5 g IV q8h Discharge Summary: * Per the operative note, the gallbladder was gangrenous, severely inflamed, and perforated gallbladder * Acute hypoxic respiratory failure 10/31/2023 * Elevated CRP 34.59 and Procal 7.93, Leukocytosis at 18.85 on 10/31/23 * Suggestive of inflammatory bacterial origin, most likely secondary to biliary sepsis * Given MRSA swab is negative and patient is already covered for Pseudomonas and some anaerobes with Zosyn, linezolid was discontinued ___ At time of presentation to the ER based on leukocytosis, identified source of acute cholecystitis, and tachycardia greater than 90% with sepsis criteria without evidence of shock/hypotension. At time of hospitalist consultation patient was w/ clinical improvement respirations 16, pulse 84, afebrile with a leukocytosis. Patient did have a leukocytosis and w/ with evidence of acute cholecystitis, clinically did not appear toxic/septic at the bedside. MTDD
== END 2023-11-04 15:50 | disposition home or self-care (01) | DRG 417 ==
LOC: ED 14:17 → SUATTDRO 17:29 → 2N 17:29 → 2E 10-30 13:40